=== PATIENT | female | born 1950 | race Caucasian/White ===

== ENCOUNTER 2017-12-15 08:00 | Outpatient (RCR) | payer MEDICARE, BC ==
[2017-12-14 15:55] LABS: BASOPHILS % 0.3 % (0.0-1.0); EOSINOPHILS % 0.3 % (0.0-6.0); HEMOGLOBIN 12.5 g/dL (12.0-16.0); LYMPHOCYTES # (AUTO) 0.7 (1.0-3.2); MEAN CORPUSCULAR HEMOGLOBIN 33.3 pg (28-32); MEAN CORPUSCULAR HGB CONC 34.7 g/dL (31-35); MONOCYTES # (AUTO) 0.7 (0.2-0.8); MONOCYTES % 11.5 % (4.4-11.3); NEUTROPHILS # (AUTO) 4.5 (2.1-6.9); NEUTROPHILS % 74.9 % (38.7-80.0); PLATELET COUNT 157 x10e3/uL (140-360); RED BLOOD COUNT 3.75 x10e6/uL (3.6-5.1); RED CELL DISTRIBUTION WIDTH 16.8 % (11.7-14.4)
[2017-12-14 16:34] LABS: ALBUMIN 3.4 g/dL (3.5-5.0); ANION GAP 13.2 mmol/L (8-16); CALCIUM 9.1 mg/dL (8.4-10.2); CREATININE, SERUM 1.19 mg/dL (0.57-1.11)
[2017-12-14 16:36] LABS: POTASSIUM 5.2 mmol/L (3.5-5.1)
[~2017-12-15 08:00] MED LIST: BENZONATATE100 MG PO; BISOPROLOL FUMAR5 MG PO; CAPTOPRIL12.5 MG PO; COLLAGENASE OINTMENT 30 GM TUBE ONE; ECOTRIN81 MG PO; FUROSEMIDE40 MG PO; ISOSORBIDE MONO30 M1 PO; LIDOCAINE VISC 2% SOLN 15 ML UDC ONE; TYLENOL EXTRA500 MG PO; ULTRAM50 MG PO; VYTORIN 10-401 EACH PO; ZEBETA10 MG PO
== END 2017-12-27 ==
LOC: WCC 08:00
PROVIDERS: ATTEND Podiatrist Foot & Ankle Surgery
DX: I87.331 Chronic venous hypertension (idiopathic) with ulcer and inflammation of right lower extremity (principal); I87.332 Chronic venous hypertension (idiopathic) with ulcer and inflammation of left lower extremity; L89.622 Pressure ulcer of left heel, stage 2; L89.612 Pressure ulcer of right heel, stage 2; L89.892 Pressure ulcer of other site, stage 2; L97.821 Non-pressure chronic ulcer of other part of left lower leg limited to breakdown of skin; L97.811 Non-pressure chronic ulcer of other part of right lower leg limited to breakdown of skin; I70.25 Atherosclerosis of native arteries of other extremities with ulceration; R60.0 Localized edema; I87.2 Venous insufficiency (chronic) (peripheral); I10 Essential (primary) hypertension; I25.84 Coronary atherosclerosis due to calcified coronary lesion; Z74.01 Bed confinement status
CPT/HCPCS: 36415; 80053; 84134; 85025; 93923; 97602 ×2; G0463

== ENCOUNTER 2018-01-18 12:26 | Outpatient (RCR) | payer MEDICARE, BC ==
[~2018-01-18 12:26] MED LIST changes: -LIDOCAINE VISC 2% SOLN 15 ML UDC ONE
[2018-01-18] MEDS ORDERED: COLLAGENASE OINTMENT 30 GM TUBE ONE (15:20)
[2018-01-18] MEDS ORDERED: LIDOCAINE VISC 2% SOLN 15 ML UDC ONE (15:20)
== END 2018-01-27 ==
LOC: WCC 12:26
PROVIDERS: ATTEND Podiatrist Foot & Ankle Surgery
DX: I87.331 Chronic venous hypertension (idiopathic) with ulcer and inflammation of right lower extremity (principal); I87.332 Chronic venous hypertension (idiopathic) with ulcer and inflammation of left lower extremity; L89.622 Pressure ulcer of left heel, stage 2; L89.612 Pressure ulcer of right heel, stage 2; L89.892 Pressure ulcer of other site, stage 2; L97.821 Non-pressure chronic ulcer of other part of left lower leg limited to breakdown of skin; L97.811 Non-pressure chronic ulcer of other part of right lower leg limited to breakdown of skin; R60.0 Localized edema; I87.2 Venous insufficiency (chronic) (peripheral); I10 Essential (primary) hypertension; I25.84 Coronary atherosclerosis due to calcified coronary lesion; I70.25 Atherosclerosis of native arteries of other extremities with ulceration; Z74.01 Bed confinement status

== ENCOUNTER 2018-02-19 09:52 | Emergency (ER) | payer MEDICARE, BC ==
[~2018-02-19] VITALS: Ht 167.6 cm; Wt 52.2 kg
[~2018-02-19 09:52] MED LIST changes: -COLLAGENASE OINTMENT 30 GM TUBE ONE
--- OUTSIDE RECORDS SUMMARY | 2018-02-19 09:55 | XMS REPORT ---
Author Author [facility] Address Unknown Phone Unavailable Care Team Providers Care Hand Tube Bender Name Role Phone CAM ALVARENGA Unavailable Unavailable Problems This patient has no known problems. Allergies, Adverse Reactions, Alerts This patient has no known allergies or adverse reactions. Medications This patient has no known medications. Results Test Description Test Time Test Comments Text Results Atomic Results Result Comments CHEST XRAY LINE PLACEMENT [place] [address] Patient Name: EDWINA SEXTON MR #: [id number] : 1950 Age/Sex: 66/F Req #: [id number] Adm Physician: CAM ALVARENGA MD Ordered by: CAM ALVARENGA MD Report #: [id number] Location: ICU Room/Bed: [facility] __ Procedure: [id number] DX/CHEST XRAY LINE PLACEMENT Exam Date: 08/15/17 Exam Time: 1130 REPORT STATUS: Signed PROCEDURE: A single AP view of the chest. COMPARISON: Chest x- ray of 08/15/2017 4:50 AM. INDICATIONS: PICC PLACEMENT FINDINGS: Lines/tubes: New right PICC line with tip in low SVC. Left- sided AICD with 2 leads overlying radiopaque ring remain unchanged. Lungs: The lungs are well-inflated. Central pulmonary venous congestion is unchanged. Pleura: There is no pleural effusion or pneumothorax. Heart and mediastinum: mild cardiomegaly is unchanged. Bones: No acute bony abnormality. IMPRESSION: New right PICC line with tip at low SVC. Dictated by: Kena Lainez M.D. on 08/15/2017 at 12:13 Electronically approved by: Kena Lainez M.D. on 08/15/2017 at 12:13 Dictated By: KENA LAINEZ MD 121 Transcribed By: ROSSY on 08/15/17 1213 COPY TO: CAM ALVARENGA MD CHEST SINGLE (PORTABLE) [place] [address] Patient Name: EDWINA SEXTON MR #: [id number] : 1950 Age/Sex: 66/F Req #: [id number] Adm Physician: CAM ALVARENGA MD Ordered by: CAM ALVARENGA MD Report #: [id number] Location: ICU Room/Bed: ICU [facility] __ Procedure: [id number] DX/CHEST SINGLE (PORTABLE) Exam Date : 08/15/17 Exam Time: 0450 REPORT STATUS: Signed EXAMINATION: CHEST SINGLE (PORTABLE) INDICATION: COPD. COMPARISON: 08/14/2017 and 08/13/2017 FINDINGS: TUBES and LINES: The pacemaker is intact. Radiopaque doughnut shape density overlying the left upper chest LUNGS: Lungs are not well inflated. There are bibasilar atelectasis. There is mild perihilar interstitial opacities, consistent with interstitial edema. PLEURA: No pleural effusion or pneumothorax. HEART AND MEDIASTINUM: Cardiac size is moderately enlarged. There are atherosclerotic calcifications within the aorta. BONES AND SOFT TISSUES: No acute osseous lesion. Soft tissues are unremarkable. UPPER ABDOMEN: No free air under the diaphragm. IMPRESSION: Persistent interstitial changes with cardiomegaly suspicious for fluid overload. Signed by: Dr. Rudy Garcia M.D. on 08/15/2017 6:13 AM Dictated By: RUDY JIMENEZ MD 2 Transcribed By: DINO on 08/15/17612 COPY TO: CAM ALVARENGA MD CHEST SINGLE (PORTABLE) [place] [address] Patient Name: EDWINA SEXTON MR #: [id number] : 1950 Age/Sex: 66/F Req #: [id number] Adm Physician: CAM ALVARENGA MD Ordered by: ZHANG BARRERA MD Report #: [id number] Location: [facility] Room/Bed: [place] [address] Procedure: [id number] DX/CHEST SINGLE (PORTABLE) Exam Date: 08/14/17 Exam Time: 1030 REPORT STATUS: Signed PROCEDURE: CHEST SINGLE (PORTABLE) TECHNIQUE: Portable AP chest INDICATION: Shortness of breath COMPARISON: [facility], DX , CHEST SINGLE (PORTABLE), 08/13/2017, 8:25. FINDINGS: Bilateral interstitial opacity with central vascular enlargement cardiomegaly. 2-lead AICD/pacemaker left hemithorax with accompanying magnet. Leads intact. Intact skeleton. Cholecystectomy clips. CONCLUSION: Cardiomegaly with central vascular congestion and mild interstitial edema. Dictated by: Yu Centeno M.D. on 08/14/2017 at 11:15 Electronically approved by: Yu Centeno M.D. on 08/14/2017 at 11:15 Dictated By: YU CENTENO MD Transcribed By: ROSSY on 08/14/171114 COPY TO: ZHANG BARRERA MD CT BRAIN WO [place] [id number] [place] [address] Patient Name: EDWINA SEXTON MR #: [id number] : 1950 Age/Sex: 66/F Req #: [id number] Adm Physician: Ordered by: JONI CYR MD Report #: [id number] Location: ER Room/Bed: Procedure: [id number] CT/CT BRAIN WO Exam Date: 08/13/17 Exam Time: 0810 REPORT STATUS: Signed History: Headaches Comparison studies: None Technique: Axial images were obtained from the skull base to the vertex. Coronal and sagittal reconstructions obtained from the axial data. Findings: Scalp/skull: No abnormalities. No fractures, blastic or lytic lesions. Extra-axial spaces: No masses. No fluid collections. Brain sulci: Mildly prominent. Ventricles: Mild compensatory dilatation. No hydrocephalus. Parenchyma: A subtle hypodense focus in the right subinsular region is nonspecific but probably small vessel ischemic change. No masses, hemorrhage, acute or chronic cortical vascular insults. Sellar /suprasellar region: No abnormalities Craniocervical junction: Patent foramen magnum. No Chiari one malformation. Incidental punctate atherosclerotic calcifications in the carotid siphons IMPRESSION: No acute abnormalities. Chronic findings: 1. Age-related mild generalized volume loss. 2. Minimal supratentorial white matter small vessel changes. Signed by: Dr. Vince Quinones M.D. on 08/13/2017 8:36 AM Dictated By : VINCE QUINONES MD, MD 5 Transcribed By: DINO on 08/13/17835 COPY TO: JONI CYR MD CHEST SINGLE (PORTABLE) [place] [address] Patient Name: EDWINA SEXTON MR #: [id number] : 1950 Age/Sex: 66/F Req #: [id number] Adm Physician: Ordered by: JONI CYR MD Report #: [id number] Location: ER Room/Bed: Procedure: [id number] DX/CHEST SINGLE (PORTABLE) Exam Date: 08/13/17 Exam Time: 0810 REPORT STATUS: Signed Examination: Single AP view of the chest. COMPARISON: Portable chest 03/15/2016 INDICATION: New onset headache IMPRESSION: 1. Lines and Tubes: Stable left upper chest dual lead cardiac device 2. Stable blunting of the left lateral costophrenic sulcus, likely due to pleural thickening. No consolidation. Stable mild prominence of the interstitial markings, likely due to chronic interstitial changes 3. Cardiomediastinal silhouette is normal. Pulmonary vasculature is normal. 4. No acute bony abnormalities. Signed by: Dr. Darwin Valadez M.D. on 08/13/2017 9:02 AM Dictated By: DARWIN VALADEZ MD 1 Transcribed By: DINO on 08/13/17901 COPY TO: JONI CYR MD
--- OUTSIDE RECORDS SUMMARY | 2018-02-19 09:55 | XMS REPORT | Continuity of Care Document ---
Author Author [facility] Organization [facility] Address [address] [place] [address] Phone Unavailable Care Team Providers Care Appliance Mechanic Name Role Phone CAM ALVARENGA MD PCP Insurance Providers Guarantor Gissel Sexton Address [address] [place] [address] Email [email or web address] [facility] Policy Number [id number] Subscriber's Name Srinath Sexton Relationship 01 Group Number [id number] Group Name [facility] Effective Date 15 Payer Medicare A & B Policy Number [id number] Subscriber's Name Gissel Sexton Relationship 18 Self / Same As Patient Group Name RETIRED Effective Date 13 Advance Directives Directive Response Recorded Date/Time Does the patient have an advance directive? Yes 08/13/17 4:07pm If yes, is advance directive on file with [facility]? No 08/13/17 4:07pm If not on file with [facility] will patient provide a copy? Yes 08/13/17 4:07pm Do you have a Directive to Physician? No 12/27/17 10:31am Do you have a Medical Power of It Operations Specialist? No 12/27/17 10:31am Do you have an out of hospital Do Not Resuscitate Order? No 12/27/17 10:31am Do you have any special needs we should be aware of? No 12/27/17 10:31am Do you have a support person here with you today? No 12/27/17 10:31am Did patient receive Notice of Privacy Practices? Yes 12/27/17 10:31am Did patient receive patient rights and responsibilities? Yes 12/27/17 10:31am Problems Medical Problem Onset Date Status Vertebral compression fracture 03/14/2016 Acute Medications Current Home Medications Medication Dose Units Route Directions Days Qty Instructions Start Date Acetaminophen (Tylenol Extra Strength) 500 Mg Tablet 1,000 Mg Oral Every 6 Hours as needed for Pain Aspirin (Ecotrin) 81 Mg Tablet.dr 81 Mg Oral Daily Benzonatate 100 Mg Capsule 100 Mg Oral Three Times A Day as needed for Cough Bisoprolol Fumarate (Zebeta) 10 Mg Tab 10 Mg Oral Every 12 Hours 30 Tab Captopril 12.5 Mg Tablet 12.5 Mg Oral Every 12 Hours Ezetimibe/Simvastatin (Vytorin 10-40 Mg Tablet) 1 Each Tablet Mg Oral Bedtime Furosemide 40 Mg Tablet 40 Mg Oral Daily 30 Tab Isosorbide Mononitrate 30 Mg Tab.er.24h 15 Mg Oral Daily Tramadol Hcl (Ultram) 50 Mg Tablet 50 Mg Oral Every 6 Hours as needed for Pain Past Home Medications Medication Directions Ordered Status Aspirin (Ecotrin) 81 Mg Tablet.dr, 81 Mg Oral Daily Discontinued Social History Social History Problem Response Recorded Date/Time Onset Date Status Hx Psychiatric Problems No 08/13/2017 4:07pm Not Applicable Not Applicable Hx Eating Disorder No 08/13/2017 4:07pm Not Applicable Not Applicable Hx Substance Use Disorder No 08/13/2017 4:07pm Not Applicable Not Applicable Hx Depression No 08/13/2017 4:07pm Not Applicable Not Applicable Hx Alcohol Use No 08/13/2017 4:07pm Not Applicable Not Applicable Hx Substance Use Treatment No 08/13/2017 4:07pm Not Applicable Not Applicable Hx Physical Abuse No 08/13/2017 4:07pm Not Applicable Not Applicable Hospital Discharge Instructions No hospital discharge instruction information available. Plan of Care Prescriptions See Medication Section Functional Status No functional status information available. Allergies, Adverse Reactions, Alerts Allergen Type Severity Reaction Status Last Updated Penicillin Allergy Severe "SHOCK" Active 08/13/17 Immunizations No immunization information available. Vital Signs Acute Vital Signs Vital Response Date/Time Temperature (Fahrenheit) 98.4 degrees F (97.6 - 99.5) 08/17/2017 9:11pm Pulse Pulse Rate (adult) 103 bpm (60 - 90) 08/17/2017 8:45pm Respiratory Rate 18 bpm (12 - 24) 08/17/2017 8:45pm Blood Pressure 119/79 mm Hg 08/17/2017 8:45pm Results Laboratory Results Test Name Result Units Flags Reference Collection Date/Time Result Date/ Time Comments Differential Total Cells Counted 100 08/17/2017 5:00am 08/17/2017 6 :52am Neutrophils % (Manual) 84 % H 40-74 08/17/2017 5:00am 08/17/2017 6:52am Band Neutrophils % 4 % 08/17/2017 5:00am 08/17/2017 6:52am Lymphocytes % (Manual) 8 % L 19-48 08/17/2017 5:00am 08/17/2017 6:52am Monocytes % (Manual) 4 % 3.4-9.0 08/17/2017 5:00am 08/17/2017 6:52am Eosinophils % (Manual) 1 % 0-7 08/13/2017 7:30am 08/13/2017 10:46am Reactive Lymphocytes 1 08/14/2017 6:00am 08/14/2017 10:11am Platelet Estimate SLIGHTLY DECREASED 08/17/2017 5:00am 08/17/2017 6 :52am Platelet Morphology Comment FEW LARGE 08/17/2017 5:00am 08/17/2017 6:52am Hypochromasia SLIGHT 08/17/2017 5:00am 08/17/2017 6:52am Poikilocytosis SLIGHT 08/17/2017 5:00am 08/17/2017 6:52am Anisocytosis SLIGHT 08/17/2017 5:00am 08/17/2017 6:52am Red Cell Morphology Comment NORMAL 08/17/2017 5:00am 08/17/2017 6: 52am Erythrocyte Sedimentation Rate 1 mm/hr 0-20 08/13/2017 7:30am 2016 9:38am Prothrombin Time 14.0 seconds 11.9-14.5 08/15/2017 5:00am 08/15/2017 8: 14am Prothromb Time International Ratio 1.03 08/15/2017 5:00am 2016 8:14am Oral Anticoagulant Therapy INR Values: 1. Low Intensity Therapy 1.5 - 2.0 2. Moderate Intensity Therapy 2.0 - 3.0 3. High Intensity Therapy(1) 2.5 - 3.5 4. High Intensity Therapy(2) 3.0 - 4.0 5. Panic Value INR > 5.0 Activated Partial Thromboplast Time 53.5 seconds H 23.8-35.5 08/17/2017 6 :40pm 08/17/2017 6:58pm Urine Color YELLOW YELLOW 08/13/2017 9:01am 08/13/2017 9:26am Urine Clarity CLEAR CLEAR 08/13/2017 9:01am 08/13/2017 9:26am Urine Specific [place] 1.020 1.010-1.025 08/13/2017 9:01am 2016 9:26am Urine pH 5 5 - 7 08/13/2017 9:01am 08/13/2017 9:26am Urine Leukocyte Esterase NEGATIVE NEGATIVE 08/13/2017 9:01am 2016 9:26am Urine Nitrite NEGATIVE NEGATIVE 08/13/2017 9:01am 08/13/2017 9:26am Urine Protein 1+ H NEGATIVE 08/13/2017 9:01am 08/13/2017 9:26am Urine Glucose (UA) NEGATIVE NEGATIVE 08/13/2017 9:01am 08/13/2017 9: 26am Urine Ketones NEGATIVE NEGATIVE 08/13/2017 9:01am 08/13/2017 9:26am Urine Opiates Screen POSITIVE H NEGATIVE 08/14/2017 3:23pm 08/14/2017 3:53pm This test provides only a screen. Positive results should be repeated by a confirmatory test. Urine Barbiturates Screen NEGATIVE NEGATIVE 08/14/2017 3:23pm 2016 3:53pm Urine Phencyclidine Screen NEGATIVE NEGATIVE 08/14/2017 3:23pm 2016 3:53pm Urine Amphetamines Screen NEGATIVE NEGATIVE 08/14/2017 3:23pm 2016 3:53pm Urine Benzodiazepines Screen NEGATIVE NEGATIVE 08/14/2017 3:23pm 3:53pm Urine Cocaine Screen NEGATIVE NEGATIVE 08/14/2017 3:23pm 08/14/2017 3 :53pm Urine Cannabinoids Screen NEGATIVE NEGATIVE 08/14/2017 3:23pm 2016 3:53pm THESE RESULTS ARE FOR MEDICAL TREATMENT ONLY *THIS REPORT CONTAINS UNCONFIRMED SCREENING RESULTS* POSITIVE RESULTS WILL BE CONFIRMED BY REFERENCE LAB UPON REQUEST CUT-OFF DRUG CLASS CONCENTRATION ng/mL Amphetamines 1000 Methamphetamines 1000 Cocaine 300 Opiate 300 Phencyclidine 25 Cannabinoid 50 Barbiturates 300 Benzodiazepine 300 Methadone 300 Urine Urobilinogen 4 mg/dL H 0.2 - 1 08/13/2017 9:01am 08/13/2017 9: 26am Urine Bilirubin 1+ H NEGATIVE 08/13/2017 9:01am 08/13/2017 9:26am Urine Blood 1+ H NEGATIVE 08/13/2017 9:01am 08/13/2017 9:26am Urine WBC NONE /HPF 0-5 08/13/2017 9:01am 08/13/2017 9:29am Urine RBC NONE /HPF 0-5 08/13/2017 9:01am 08/13/2017 9:29am Urine Bacteria NONE /HPF NONE 08/13/2017 9:01am 08/13/2017 9:29am Urine Epithelial Cells NONE /LPF NONE 08/13/2017 9:01am 08/13/2017 9: 29am Urine Transitional Epithelial Cells UNSPUN NONE 08/13/2017 9:01am 9:29am Bedside Glucose 151 mg/dL H 70-120 08/17/2017 7:27pm 08/17/2017 11:59pm Meter ID: [id number] Magnesium Level 1.6 MG/DL 1.3-2.1 08/15/2017 5:40am 08/15/2017 6:42am Ammonia 47 UG/DL 31-123 08/15/2017 5:40am 08/15/2017 6:52am B-Type Natriuretic Peptide 888.4 pg/mL H 0-100 08/14/2017 6:00am 2016 11:08am Thyroid Stimulating Hormone (TSH) 0.686 uIU/mL 0.350-4.940 08/14/2017 6: 05am 08/14/2017 10:23am Arterial Blood pH 7.33 7.31-7.41 08/14/2017 8:25pm 08/14/2017 8:44pm Arterial Blood Partial Pressure CO2 36 mmHg L 41-51 08/14/2017 8:25pm 8:44pm Arterial Blood Partial Pressure O2 84 mmHg 80-105 08/14/2017 8:25pm 8:44pm Arterial Blood HCO3 19 mmol/L L 23-28 08/14/2017 8:25pm 08/14/2017 8: 44pm Arterial Blood Base Excess -7.0 mmol/L L -2 - 3 08/14/2017 8:25pm 2016 8:44pm Arterial Blood Oxygen Saturation 96.0 % 95-98 08/14/2017 8:25pm 2016 8:44pm White Blood Count 6.01 x10e3/uL 4.8-10.8 12/14/2017 2:30pm 12/14/2017 3 :55pm Red Blood Count 3.75 x10e6/uL 3.6-5.1 12/14/2017 2:30pm 12/14/2017 3: 55pm Hemoglobin 12.5 g/dL 12.0-16.0 12/14/2017 2:30pm 12/14/2017 3:55pm Hematocrit 36.0 % 34.2-44.1 12/14/2017 2:30pm 12/14/2017 3:55pm Mean Corpuscular Volume 96.0 fL 81-99 12/14/2017 2:30pm 12/14/2017 3: 55pm Mean Corpuscular Hemoglobin 33.3 pg H 28-32 12/14/2017 2:30pm 2017 3:55pm Mean Corpuscular Hemoglobin Concent 34.7 g/dL 31-35 12/14/2017 2:30pm 12/14/2017 3:55pm Red Cell Distribution Width 16.8 % H 11.7-14.4 12/14/2017 2:30pm 2017 3:55pm Platelet Count 157 x10e3/uL 140-360 12/14/2017 2:30pm 12/14/2017 3: 55pm Neutrophils (%) (Auto) 74.9 % 38.7-80.0 12/14/2017 2:30pm 12/14/2017 3: 55pm Lymphocytes (%) (Auto) 11.0 % L 18.0-39.1 12/14/2017 2:30pm 12/14/2017 3 :55pm Monocytes (%) (Auto) 11.5 % H 4.4-11.3 12/14/2017 2:30pm 12/14/2017 3: 55pm Eosinophils (%) (Auto) 0.3 % 0.0-6.0 12/14/2017 2:30pm 12/14/2017 3: 55pm Basophils (%) (Auto) 0.3 % 0.0-1.0 12/14/2017 2:30pm 12/14/2017 3:55pm IM GRANULOCYTES % 2.0 % H 0.0-1.0 12/14/2017 2:30pm 12/14/2017 3:55pm Neutrophils # (Auto) 4.5 2.1-6.9 12/14/2017 2:30pm 12/14/2017 3:55pm Lymphocytes # (Auto) 0.7 L 1.0-3.2 12/14/2017 2:30pm 12/14/2017 3: 55pm Monocytes # (Auto) 0.7 0.2-0.8 12/14/2017 2:30pm 12/14/2017 3:55pm Eosinophils # (Auto) 0.0 0.0-0.4 12/14/2017 2:30pm 12/14/2017 3:55pm Basophils # (Auto) 0.0 0.0-0.1 12/14/2017 2:30pm 12/14/2017 3:55pm Absolute Immature Granulocyte (auto 0.12 x10e3/uL H 0-0.1 12/14/2017 2: 30pm 12/14/2017 3:55pm Sodium Level 130 mmol/L L 136-145 12/14/2017 2:30pm 12/14/2017 4:36pm Potassium Level 5.2 mmol/L H 3.5-5.1 12/14/2017 2:30pm 12/14/2017 4: 36pm No hemolysis present Chloride Level 96 mmol/L L 98-107 12/14/2017 2:30pm 12/14/2017 4:36pm Carbon Dioxide Level 26 mmol/L 22-29 12/14/2017 2:30pm 12/14/2017 4: 36pm Anion Gap 13.2 mmol/L 8-16 12/14/2017 2:30pm 12/14/2017 4:36pm Blood Urea Nitrogen 36 mg/dL H 7-12/14/2017 2:30pm 12/14/2017 4:36pm Creatinine 1.19 mg/dL H 0.57-1.11 12/14/2017 2:30pm 12/14/2017 4:36pm BUN/Creatinine Ratio 30 H 6-25 12/14/2017 2:30pm 12/14/2017 4:36pm Estimat Glomerular Filtration Rate 45 ML/MIN L 60- 12/14/2017 2:30pm 4:36pm Ranges were taken from the National Kidney Disease Education Program and the National Kid[employer] Foundation literature. Reference ranges: 60 or greater: Normal 16-59 (for 3 consecutive months): Chronic kidney disease 15 or less: Kidney failure Glucose Level 93 mg/dL 74-118 12/14/2017 2:30pm 12/14/2017 4:36pm Calcium Level 9.1 mg/dL 8.4-10.2 12/14/2017 2:30pm 12/14/2017 4:36pm Total Bilirubin 0.5 mg/dL 0.2-1.2 12/14/2017 2:30pm 12/14/2017 4:36pm Aspartate Amino Transf (AST/SGOT) 26 IU/L 5-34 12/14/2017 2:30pm 2017 4:36pm Alanine Aminotransferase (ALT/SGPT) 35 IU/L 0-55 12/14/2017 2:30pm 4:36pm Total Protein 6.9 g/dL 6.5-8.1 12/14/2017 2:30pm 12/14/2017 4:36pm Albumin 3.4 g/dL L 3.5-5.0 12/14/2017 2:30pm 12/14/2017 4:36pm Globulin 3.5 g/dL 2.3-3.5 12/14/2017 2:30pm 12/14/2017 4:36pm Albumin/Globulin Ratio 1.0 0.8-2.0 12/14/2017 2:30pm 12/14/2017 4: 36pm Alkaline Phosphatase 54 IU/L 40-150 12/14/2017 2:30pm 12/14/2017 4: 36pm Prealbumin 33 mg/dL 10-36 12/14/2017 2:30pm 12/15/2017 9:24am Performed at: [facility] - [facility] [address] [id number] [employer] Mechanic: Tevin Bates MD, Phone: [phone] Procedures Procedure Status Date Provider(s) INSERTION OF INFUSION DEV INTO SUP VENA CAVA, PERC APPROACH Completed KENA OCONNOR MD Computed tomography of brain without radiopaque contrast Active 08/13/17 JONI CYR MD Encounters Encounter Location Arrival/Admit Date Discharge/Depart Date Attending Provider Discharged [facility] 01/18/18 12:26pm 11:59pm JANETT WASHBURN DPM Discharged [facility] 12/14/17 11:00am 11:59pm JANETT WASHBURN DPChioma Discharged Inpatient [facility] 08/14/17 1:49pm 08/17/17 9:30pm CAM ALVARENGA MD
[2018-02-19] MEDS ORDERED: HYDROCODONE/APAP 5MG-325MG TAB PO ONE (10:30)
[2018-02-19] MEDS ORDERED: MORPHINE SULFATE 2 MG/ML SYR IM STA (11:19)
--- NOTE | 2018-02-19 11:41 | Diagnostic Imaging Report ---
PROCEDURE:L-SPINE COMPLETE COMPARISON:10/17/2016 INDICATIONS:LOW BACK PAIN FINDINGS: Limited by generalized demineralization. There are 5 lumbar-type vertebral bodies. The vertebral bodies are well-aligned without evidence of spondylolisthesis. Unchanged mild L5 superior endplate compression deformity and Mild L3 anterior wedging. There are no displaced fractures, lytic or blastic lesions. The disc-space heights are well-maintained. Lower lumbar spine facet arthropathy. Vascular calcifications. CONCLUSION: No significant interval change from prior exam. Unchanged mild L5 superior endplate compression deformity and Mild L3 anterior wedging. Dictated by: Benjamin Adhikari M.D. on 02/19/2018 at 11:43 Electronically approved by: Benjamin Adhikari M.D. on 02/19/2018 at 11:43
--- NOTE | 2018-02-19 11:46 | Diagnostic Imaging Report ---
PROCEDURE:X-RAY PELVIS, AP VIEW COMPARISON:None. INDICATIONS:ACUTE PAIN FINDINGS: Limited by body habitus and demineralization. There are no fractures, dislocations, lytic or blastic lesions. Degenerative changes of SI joints and lower lumbar spine. The soft-tissues are unremarkable. CONCLUSION: No acute displaced fracture or dislocation of the pelvis. Dictated by: Benjamin Adhikari M.D. on 02/19/2018 at 11:48 Electronically approved by: Benjamin Adhikari M.D. on 02/19/2018 at 11:48
== END 2018-02-19 13:29 | disposition home or self-care (01) ==
LOC: ER 09:52
DX: M54.5 Low back pain (principal); S39.012A Strain of muscle, fascia and tendon of lower back, initial encounter; F17.210 Nicotine dependence, cigarettes, uncomplicated
CPT/HCPCS: 72110; 72170; 96372; 99283; J2270

== ENCOUNTER → 2018-03-22 | Outpatient (CLI) | payer MEDICARE, BC ==
--- NOTE | 2018-03-22 13:51 | Diagnostic Imaging Report ---
EXAMINATION: CT of the lumbar spine HISTORY:Low back pain for the last year COMPARISON: Lumbar spine CT on 03/15/2016 and x-ray from 02/19/2018 TECHNIQUE: Multidetector helical axial images were obtained without contrast from L1 to S1. The images were reconstructed using bone and soft tissue algorithms and were viewed in axial, sagittal, and coronal planes. FINDINGS: Alignment:Grade 1 anterolisthesis at L4-L5 due to facet arthrosis. Vertebral bodies: -Diffuse decreased bone marrow density related to osteopenia. -Mild age-indeterminate, likely subacute to chronic compression fracture of the L1 vertebral body with decreased height by approximately 30%, minimal posterior displacement of the superior endplate with minimal canal narrowing. Unchanged from x-ray from 02/19/2018, new since lumbar spine CT on 03/15/2016 -Minimal age indeterminate compression rupture of the T12 vertebral body with depression of the superior endplate approximately 10%, no posterior retropulsion and no canal stenosis. -Mild chronic compression fracture of the L3 and L5 vertebral bodies with decreased vertebral body height by approximately 20%, no significant posterior retropulsion. Paraspinal soft tissues:Slightly hyperdense focus in the superior pole of the left kidney may represent a small calcification, no hydronephrosis. Mild dilatation of the abdominal aorta with prominent calcified atherosclerotic changes. Intervertebral disks: L1-L2: Minimal symmetric disc bulge without significant stenosis. L2-L3: Mild symmetric disc bulge without significant stenosis. L3-L4: Symmetric disc pole chest and facet arthrosis. Mild canal and foraminal narrowing. L4-L5: Mild disc bulge and facet arthrosis. Mild canal and foraminal narrowing. L5-S1: Facet arthrosis without significant stenoses. Sacroiliac joints: Degenerative changes bilaterally. Age indeterminate likely chronic nondisplaced bilateral sacral rivera fractures. IMPRESSION: 1. Age indeterminate perhaps subacute compression fractures of the T12 and L1 vertebral bodies as described. 2. Mild chronic compression fractures of the L3 and L5 vertebral bodies. 3. Age indeterminate likely chronic nondisplaced bilateral sacral fractures. 4. Mild degenerative changes as detailed above. Signed by: Dr. Melly Reese M.D. on 03/22/2018 1:47 PM
== END ==
LOC: CT 11:08
PROVIDERS: ATTEND Family Medicine
DX: M54.40 Lumbago with sciatica, unspecified side (principal)
CPT/HCPCS: 72131

== ENCOUNTER → 2018-05-23 | Outpatient (CLI) | payer MEDICARE, BC ==
--- NOTE | 2018-05-23 19:50 | Diagnostic Imaging Report ---
Thyroid Scan with Uptake Determination Reason for exam: 67 F with elevated thyroid function tests. Radiopharmaceutical: I-123 Prabhjot 0.28 mCi Report: After oral administration of I-123 Prabhjot ,the 4-hour thyroid uptake of iodine is 1.6% (normal 4-14%). Image of the thyroid was obtained in the anterior projection. Quality of the image is suboptimal and uninterpretable because of the low thyroid uptake of iodine. 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 Decreased thyroid uptake of iodine in this patient who is thyrotoxic indicates that the patient is not hyperthyroid (overproducing thyroid hormone). Release of stored thyroid hormone due to an inflammatory process such as subacute thyroiditis is the most likely cause of this patient's thyrotoxicosis. Exogenous thyroid hormone in high doses and intake of excess iodide in diet or medication can also cause low thyroid uptake of iodine and should be excluded by clinical history. Signed by: Dr. Bryanna Khan M.D. on 05/23/2018 7:46 PM
== END ==
LOC: NM 08:55
PROVIDERS: ATTEND Internal Medicine
DX: R94.6 Abnormal results of thyroid function studies (principal)
CPT/HCPCS: 78014; A9516

== ENCOUNTER 2018-05-26 15:04 | Inpatient (IN) | payer MEDICARE, BC ==
[~2018-05-26] VITALS: Ht 162.6 cm; Wt 53.6 kg
[2018-05-26] VITALS (13 sets, daily range): BP systolic 97–129; BP diastolic 55–98
[2018-05-26] MEDS ORDERED: NEOMYCIN/POLYMYX/BACITR OINT 0.9 GM PKT ONE (16:09)
--- NOTE | 2018-05-26 16:28 | Diagnostic Imaging Report ---
EXAMINATION: CHEST SINGLE (PORTABLE) INDICATION: \S\chest pain \[id number] \S\[id number] COMPARISON: Chest radiograph 08/15/2017 FINDINGS: AP view TUBES and LINES: 3-lead ICD/pacemaker device overlying the right hemithorax with leads overlying the right atrial appendage, coronary sinus, and right ventricle. Previously, the device was on the left. LUNGS: Lungs are well inflated. Minimal atelectasis in the left lower lobe. Bilateral interstitial edema. PLEURA: No pleural effusion or pneumothorax. HEART AND MEDIASTINUM: The cardiomediastinal silhouette is unremarkable.. BONES AND SOFT TISSUES: No acute osseous lesion. Soft tissues are unremarkable. UPPER ABDOMEN: No free air under the diaphragm. Cholecystectomy clips. IMPRESSION: Bilateral interstitial edema, unchanged. Signed by: Dr. Ronit Montgomery M.D. on 05/26/2018 4:24 PM
[2018-05-26 17:08] LABS: CLARITY,URINE HAZY (CLEAR); COLOR,URINE YELLOW (YELLOW); LEUKOCYTE ESTERASE ,URINE NEGATIVE (NEGATIVE)
[2018-05-26 17:09] LABS: BILIRUBIN,URINE NEGATIVE (NEGATIVE); KETONES,URINE NEGATIVE (NEGATIVE); NITRITE,URINE NEGATIVE (NEGATIVE); PROTEIN,URINE DIPSTICK NEGATIVE (NEGATIVE); URINE UROBILINOGEN 0.2 mg/dL (0.2 - 1)
[2018-05-26 17:14] LABS: BACTERIA,URINE FEW /HPF; EPITHELIAL CELLS,URINE RARE /LPF; RBC,URINE 0-5 /HPF (0-5); WBC,URINE (MAN) 0-5 /HPF (0-5)
[2018-05-26 17:37] LABS: BASOPHILS % 0.6 % (0.0-1.0); HEMATOCRIT 34.2 % (34.2-44.1); HEMOGLOBIN 10.9 g/dL (12.0-16.0); LYMPHOCYTES # (AUTO) 0.8 (1.0-3.2); LYMPHOCYTES % 14.2 % (18.0-39.1); MEAN CORPUSCULAR HEMOGLOBIN 28.8 pg (28-32); MEAN CORPUSCULAR HGB CONC 31.9 g/dL (31-35); MEAN CORPUSCULAR VOLUME 90.2 fL (81-99); MONOCYTES # (AUTO) 0.8 (0.2-0.8); MONOCYTES % 15.2 % (4.4-11.3); NEUTROPHILS # (AUTO) 3.7 (2.1-6.9); NEUTROPHILS % 69.6 % (38.7-80.0); PLATELET COUNT 219 x10e3/uL (140-360); RED BLOOD COUNT 3.79 x10e6/uL (3.6-5.1); RED CELL DISTRIBUTION WIDTH 16.1 % (11.7-14.4)
[2018-05-26 17:52] LABS: INR 1.36; PROTHROMBIN TIME 15.8 seconds (11.9-14.5)
[2018-05-26 17:53] LABS: PARTIAL THROMBOPLASTIN TIME 32.8 seconds (23.8-35.5)
[2018-05-26] MEDS ORDERED: ACETAMINOPHEN 1000 MG/100 ML IV NR (18:00)
[2018-05-26 18:04] LABS: ALANINE AMINOTRANSFERASE 15 IU/L (0-55); ALBUMIN 3.1 g/dL (3.5-5.0); ALBUMIN/GLOBULIN RATIO 0.8 (0.8-2.0); ALKALINE PHOSPHATASE 111 IU/L (40-150); ANION GAP 20.6 mmol/L (8-16); BLOOD UREA NITROGEN 21 mg/dL (7-26); BUN/CREATININE RATIO 23 (6-25); CALCIUM 9.6 mg/dL (8.4-10.2); CARBON DIOXIDE 22 mmol/L (22-29); CHLORIDE 106 mmol/L (98-107); CREATINE KINASE 304 IU/L (29-168); CREATININE, SERUM 0.91 mg/dL (0.57-1.11); EST GLOMERULAR FILTRATION RATE > 60 ML/MIN (60-); GLUCOSE 108 mg/dL (74-118); LIPASE 45 U/L (8-78); POTASSIUM 4.6 mmol/L (3.5-5.1); SODIUM 144 mmol/L (136-145)
[2018-05-26] MEDS ORDERED: MEROPENEM 1GRAM 1 GM in SODIUM CHLORIDE 0.9% 100 ML 100 ML IV SCH (19:00)
[2018-05-26] MEDS ORDERED: ASPIRIN 81 MG CHEW TAB PO ONE (19:00)
[2018-05-26] MEDS ORDERED: IOPAMIDOL 370 MG/ML 200 ML INFUS..BTL INJ ONE (19:07)
[2018-05-26] MEDS ORDERED: SODIUM CHLORIDE 0.9% 50ML 0 ML ONE (19:07)
[2018-05-26] MEDS ORDERED: SODIUM CHLORIDE 0.9% 1000ML 1,000 ML IV STA (19:08)
[2018-05-26] MEDS ORDERED: SODIUM CHLORIDE 0.9% 50ML 50 ML ONE (19:14)
[2018-05-26] MEDS ORDERED: LORAZEPAM INJ 2 MG/ML VIAL IV ONE (19:15)
[2018-05-26] MEDS ORDERED: HALOPERIDOL LACTATE 5 MG/ML VIAL IV ONE (19:15)
--- NOTE | 2018-05-26 19:17 | Diagnostic Imaging Report ---
Exam: Head CT without contrast History: Altered mental status Comparison studies: Head CT 08/13/2017 Technique: Axial images were obtained from the skull base to the vertex. Coronal and sagittal images reconstructed from the axial data. Intravenous contrast: None Findings: Exam is limited by artifacts related to patient motion. Clinical indication: Soft tissues: Bilateral preseptal periorbital swelling.. Bones: No gross fractures or blastic or lytic lesions. Brain sulci: Mildly prominent. Ventricles: Mild compensatory dilatation. No hydrocephalus. Extra-axial spaces: No masses, no fluid collection. Parenchyma: No mass, acute hemorrhage or acute cortical vascular insults. A few subtle hypodensities in the supratentorial white matter are nonspecific but most compatible with chronic microvascular ischemic changes. Sellar/suprasellar region: No abnormalities. Craniocervical junction: Patent foramen magnum. No Chiari one malformation. Incidental findings: Chronic mucoperiosteal thickening in the right maxillary sinus which is partially opacified by polyp or retention cyst. IMPRESSION: Exam is limited by artifacts related to patient motion. In spite of these limitations: 1. Nonspecific bilateral periorbital swelling. 2. No gross acute intracranial abnormalities or gross fractures. 3. Mild generalized volume loss. 4. Mild chronic microvascular ischemic changes. Signed by: Dr. Mateo Otoole M.D. on 05/26/2018 7:13 PM
--- NOTE | 2018-05-26 19:23 | Diagnostic Imaging Report ---
EXAM: CT ABDOMEN AND PELVIS with IV CONTRAST DATE: 05/26/2018 3:35 PM Time stamp on Exam: 1829 hours INDICATION: Pain all over COMPARISON: None TECHNIQUE: The abdomen and pelvis were scanned using a multidetector helical scanner. Coronal and sagittal reformations were obtained. Routine protocol performed. Patient scanned on their side, right lateral decubitus. IV Contrast: 100 cc Isovue-370 Oral Contrast: None CTDIvol has been reviewed. It is below the limits set by the Radiation Protocol Committee (RPC). FINDINGS: LOWER THORAX: Interlobular septal thickening and right lower lobe atelectasis. Partially visualized cardiomegaly LIVER: No masses BILIARY: The gallbladder has been removed. Mild dilation of the ductal system secondary to reservoir effect and age. SPLEEN: No masses PANCREAS: No masses ADRENALS: No nodules KIDNEYS: Symmetric perfusion. No enhancing masses. No hydronephrosis. GI TRACT: No distention, wall thickening or evidence of obstruction. Small sliding hiatal hernia. VESSELS: Marked atherosclerotic changes of the abdominal aorta with mild aneurysmal dilation to 2.4 cm. PERITONEUM/RETROPERITONEUM: No free air or fluid LYMPH NODES: No lymphadenopathy REPRODUCTIVE ORGANS: Not visualized BLADDER: Moderately distended SOFT TISSUES: Partially visualized right chest generator pack BONES: Chronic insufficiency fractures of the bilateral sacral jose elias. Several old right-sided rib fractures. Chronic fracture of the right superior and inferior pubic rami. Chronic fractures of all visualized vertebral bodies T11-L5. IMPRESSION: No acute findings in the CT of the abdomen or pelvis. Chronic findings include severe osteoporosis with multiple chronic fractures including right ribs, all vertebral bodies, right pubic rami, and sacral insufficiency fractures. Marked atherosclerotic changes of the abdominal aorta with mild aneurysmal dilation up to 2.4 cm. Signed by: Dr. Radha Araujo M.D. on 05/26/2018 7:20 PM
[2018-05-26] MEDS: MEROPENEM 1 GM VIAL IV SCH ×2 (20:38→21:23)
[2018-05-26] MEDS: SODIUM CHLORIDE 0.9% 1000ML 1,000 ML IV SCH (21:11)
[2018-05-26] MEDS: VANCOMYCIN 1GM/NS 250 ML 250 ML IV SCH (21:11)
[2018-05-26] MEDS ORDERED: ASPIRIN 300 MG SUPP PR SCH (21:15)
[2018-05-26] MEDS ORDERED: SODIUM CHLORIDE 0.9% 250ML 250 ML ONE (21:24)
[2018-05-26] MEDS: HYDROMORPHONE 1MG/1ML INJ IV PRN (21:29)
[2018-05-26] MEDS ORDERED: ACYCLOVIR SODIUM INJ 2 VIAL IV ONE (21:51)
[2018-05-26] MEDS: ACYCLOVIR SODIUM IV SCH (22:33)
[2018-05-26] MEDS: SODIUM CHLORIDE 0.9% IV SCH (22:33)
[2018-05-27] VITALS (66 sets, daily range): BP systolic 87–130; BP diastolic 48–98
--- NOTE | 2018-05-27 00:06 | Consultation ---
DATE OF CONSULTATION: May 26, 2018 CARDIOLOGY CONSULTATION REQUESTING PHYSICIAN: Dr. Shirley REASON FOR CONSULTATION: Elevated troponin. HISTORY OF PRESENT ILLNESS: This is a 67-year-old woman with chronic systolic heart failure status post AICD, coronary artery disease with known 100% DATABASE ARCHITECT of the LAD, tobacco abuse, hypertension, and atrial fibrillation, who was brought to [facility] ER due to altered mental status. No history could be obtained from the patient due to altered mental status, and family was not present at bedside. All history is obtained from the EMR. The patient has apparently been complaining of pain all over her body for the last 3 weeks. She was noted to have developed a rash in her right forehead 1 week ago, but developed swelling in her right eye 2 days ago. On evaluation in the ER, she was found to have elevated troponin of 0.977 as well with an elevated BNP and lactic acidosis. Cardiology was consulted for evaluation of patient's elevated troponin. REVIEW OF SYSTEMS: Unable to obtain secondary to altered mental status. PAST MEDICAL HISTORY: 1. Chronic systolic heart failure, status post AICD. 2. Atrial fibrillation. 3. Coronary artery disease with known 100% DATABASE ARCHITECT of the LAD. 4. Hypertension. 5. Hyperlipidemia. PAST SURGICAL HISTORY: 1. Vertebroplasty. 2. Cholecystectomy. 3. Hysterectomy. SOCIAL HISTORY: One-pack a day smoker since the age of 10. No alcohol or drugs. FAMILY HISTORY: Noncontributory. ALLERGIES: Please see EMR. MEDICATIONS: See medication reconciliation. PHYSICAL EXAMINATION: VITAL SIGNS: Temperature 100 degrees, pulse 121, respiratory rate 19, blood pressure 97/55, oxygen saturation 100% on 2 liters nasal cannula. GENERAL: Cachectic, chronically ill-appearing woman, mildly uncomfortable. HEENT: Vesicular rash on the right forehead with swelling of her right eye which is unable to be opened. NECK: Supple. No thyromegaly or cervical lymphadenopathy. No carotid bruits. LUNGS: Coarse breath sounds bilaterally. No wheezes or crackles. CARDIOVASCULAR: Tachycardic, but regular. No murmur. Normal S1 and S2. ABDOMEN: Soft, nontender. EXTREMITIES: 2+ pitting edema bilaterally. NEURO: Unable to assess secondary to altered mental status as patient kept repeating that the nurse had left the needle inside. LABS: WBC 5.28, hemoglobin 10.9, hematocrit 34.2, platelets 219,000. Sodium 144, potassium 4.6, chloride 106, CO2 22, BUN 21, creatinine 0.91. Troponin 0.977. BNP 1938. Lactic acid 32.8. EKG, electronic ventricular pacemaker. Chest x-ray, bilateral interstitial edema, unchanged. CT of the abdomen and pelvis, no acute findings in the CT of the abdomen or pelvis. Chronic findings include severe osteoporosis, multiple chronic fractures including right rib, all vertebral bodies, right pubic rami and sacral insufficiency fractures, marked atherosclerotic changes of the abdominal aorta with mild aneurysmal dilation up to 2.[address] of the brain, exam is limited by artifact related to patient's motion, nonspecific bilateral periorbital swelling, no gross acute intracranial abnormalities or gross fractures. Mild generalized volume loss. Mild chronic microvascular ischemic changes. IMPRESSIONS: 1. Altered mental status. 2. Herpes zoster infection. 3. Elevated troponin. 4. Gtsis-tp-lsxhquk systolic heart failure. 5. Coronary artery disease. 6. Atrial fibrillation. 7. Hypertension. 8. Hyperlipidemia. RECOMMENDATIONS: Patient was on Eliquis at home, hold for possible procedures given patient's altered mental status. Continue aspirin. Trend cardiac enzymes. Once patient has recovered from her infection, she will need diuresis. In the meantime, antimicrobial therapy per infectious disease. Supportive care for patient's sepsis. Hold antihypertensive therapy for now given lower blood pressure. We will resume as blood pressure tolerates. Thank you for this consult. We will continue to follow. Job#: [id number] DR GAINES
[2018-05-27] MEDS: HYDROMORPHONE 1MG/1ML INJ IV PRN ×6 (01:38→23:45)
[2018-05-27 04:25] LABS: BASOPHILS % 0.6 % (0.0-1.0); EOSINOPHILS % 0.2 % (0.0-6.0); HEMATOCRIT 31.1 % (34.2-44.1); LYMPHOCYTES # (AUTO) 0.8 (1.0-3.2); LYMPHOCYTES % 14.8 % (18.0-39.1); MEAN CORPUSCULAR HEMOGLOBIN 28.5 pg (28-32); MEAN CORPUSCULAR HGB CONC 32.2 g/dL (31-35); MEAN CORPUSCULAR VOLUME 88.6 fL (81-99); MONOCYTES # (AUTO) 0.7 (0.2-0.8); MONOCYTES % 13.3 % (4.4-11.3); NEUTROPHILS # (AUTO) 3.6 (2.1-6.9); NEUTROPHILS % 70.7 % (38.7-80.0); PLATELET COUNT 186 x10e3/uL (140-360); RED BLOOD COUNT 3.51 x10e6/uL (3.6-5.1); RED CELL DISTRIBUTION WIDTH 16.1 % (11.7-14.4)
[2018-05-27 04:47] LABS: ALANINE AMINOTRANSFERASE 15 IU/L (0-55); ALBUMIN 2.8 g/dL (3.5-5.0); ALBUMIN/GLOBULIN RATIO 0.8 (0.8-2.0); ALKALINE PHOSPHATASE 95 IU/L (40-150); ANION GAP 16.1 mmol/L (8-16); BLOOD UREA NITROGEN 18 mg/dL (7-26); BUN/CREATININE RATIO 23 (6-25); CALCIUM 8.9 mg/dL (8.4-10.2); CARBON DIOXIDE 23 mmol/L (22-29); CHLORIDE 112 mmol/L (98-107); CREATININE, SERUM 0.77 mg/dL (0.57-1.11); EST GLOMERULAR FILTRATION RATE > 60 ML/MIN (60-); GLUCOSE 82 mg/dL (74-118); POTASSIUM 4.1 mmol/L (3.5-5.1); SODIUM 147 mmol/L (136-145)
[2018-05-27] MEDS: MEROPENEM 1 GM VIAL IV SCH ×3 (05:02→21:35)
[2018-05-27 05:10] LABS: CREATINE KINASE MB 7.9 ng/mL (0-5.0)
[2018-05-27] MEDS: ACYCLOVIR SODIUM IV SCH ×3 (06:00→22:01)
[2018-05-27] MEDS: SODIUM CHLORIDE 0.9% IV SCH ×3 (06:00→22:01)
[2018-05-27] MEDS: SODIUM CHLORIDE 0.9% 1000ML 1,000 ML IV SCH ×2 (07:46→17:46)
[2018-05-27 08:03] LABS: NEUTROPHILS % (MANUAL) 73 % (40-74)
[2018-05-27 08:04] LABS: LYMPHOCYTES % (MANUAL) 15 % (19-48); MONOCYTES % (MANUAL) 12 % (3.4-9.0)
[2018-05-27 08:05] LABS: PLATELET ESTIMATE ADEQUATE; PLATELET MORPHOLOGY COMMENT NORMAL; RBC MORPHOLOGY COMMENT NORMAL
[2018-05-27] MEDS: VANCOMYCIN 1GM/NS 250 ML 250 ML IV SCH ×2 (09:22→20:13)
[2018-05-27] MEDS: ASPIRIN 300 MG SUPP PR SCH (16:30)
--- NOTE | 2018-05-27 16:36 | Progress Note ---
DATE: May 27, 2018 CARDIOLOGY PROGRESS NOTE SUBJECTIVE: The patient remains confused, does not respond to questions. OBJECTIVE VITAL SIGNS: Temperature 102.6 degrees, pulse 118, respiratory rate 18, blood pressure 117/70, oxygen saturation 100% on room air. GENERAL: Cachectic, chronically ill-appearing woman, confused. HEENT: Vesicular rash on the right forehead with swelling of her right eye. LUNGS: Coarse breath sounds bilaterally. No wheezes or crackles. CARDIOVASCULAR: Tachycardic, but regular. No murmur. Normal S1 and S2. ABDOMEN: Soft, nontender. EXTREMITIES: No edema. SKIN: Maculopapular rash noted across the skin. CARDIAC MEDICATIONS: None. LABS: WBC 5.12, hemoglobin 10, hematocrit 31.1, platelets 186,000, sodium 147, potassium 4.1, chloride 112, CO2 of 23, BUN 18, creatinine 0.77, troponin 1.335. TELEMETRY: Sinus tachycardia. IMPRESSION: 1. Altered mental status. 2. Herpes zoster infection. 3. Gram-cocci bacteremia. 4. Elevated troponin. 4. Glwdh-do-cobubik systolic heart failure. 5. Coronary artery disease. 6. Atrial fibrillation. 7. Hypertension. 8. Hyperlipidemia. RECOMMENDATIONS: Continue holding Eliquis for possible procedures given the patient's altered mental status. As the patient has no p.o. access, start rectal aspirin. Continue trending cardiac enzymes. Antimicrobial therapy per infectious disease. Hold diuretics for now given her current sepsis. The patient will need diuresis once she recovers from her acute illness. She is currently not a candidate for any invasive cardiac evaluation. Thank you for this consult. We will continue to follow. Job#: [id number] EDER
[2018-05-27] MEDS ORDERED: ACETAMINOPHEN 1000 MG/100 ML IV PRN (17:45)
[2018-05-27] MEDS: LORAZEPAM INJ 2 MG/ML VIAL IV PRN (19:30)
[2018-05-27 20:42] LABS: CREATINE KINASE MB 5.3 ng/mL (0-5.0)
--- NOTE | 2018-05-27 23:39 | Consultation ---
DATE OF CONSULTATION: May 27, 2018 REASON FOR CONSULTATION: Sepsis. This patient is a [id number], white female, who was admitted on May 26. I did see the patient on May 27. I did discuss the case with the ER physician on May 26. HISTORY OF PRESENT ILLNESS: She is a 67-year-old female who has history of congestive heart failure, atrial fibrillation, coronary artery disease, with 100% occlusion, hypertension, hyperlipidemia, comes in from house with altered mental status PHYSICAL EXAMINATION: DICTATION DISCONTINUED (03:08) Job#: [id number] CQ
[2018-05-28] VITALS (26 sets, daily range): BP systolic 71–138; BP diastolic 42–103
[2018-05-28] MEDS: KETOROLAC TROMETHAMINE 30 MG/ML VIAL IV PRN ×3 (00:04→21:00)
[2018-05-28] MEDS: LORAZEPAM INJ 2 MG/ML VIAL IV PRN ×4 (01:01→21:37)
[2018-05-28] MEDS: HYDROMORPHONE 1MG/1ML INJ IV PRN ×6 (02:41→23:30)
[2018-05-28] MEDS: MEROPENEM 1 GM VIAL IV SCH ×3 (04:55→21:36)
[2018-05-28] MEDS: ACYCLOVIR SODIUM IV SCH ×3 (04:55→21:36)
[2018-05-28] MEDS: SODIUM CHLORIDE 0.9% IV SCH ×3 (04:55→21:36)
[2018-05-28 05:19] LABS: BASOPHILS % 0.9 % (0.0-1.0); EOSINOPHILS % 0.4 % (0.0-6.0); HEMATOCRIT 28.9 % (34.2-44.1); HEMOGLOBIN 9.3 g/dL (12.0-16.0); LYMPHOCYTES # (AUTO) 1.2 (1.0-3.2); LYMPHOCYTES % 26.2 % (18.0-39.1); MEAN CORPUSCULAR HEMOGLOBIN 28.9 pg (28-32); MEAN CORPUSCULAR HGB CONC 32.2 g/dL (31-35); MEAN CORPUSCULAR VOLUME 89.8 fL (81-99); MONOCYTES # (AUTO) 0.6 (0.2-0.8); MONOCYTES % 11.9 % (4.4-11.3); NEUTROPHILS # (AUTO) 2.8 (2.1-6.9); NEUTROPHILS % 59.5 % (38.7-80.0); PLATELET COUNT 192 x10e3/uL (140-360); RED BLOOD COUNT 3.22 x10e6/uL (3.6-5.1); RED CELL DISTRIBUTION WIDTH 16.4 % (11.7-14.4)
[2018-05-28 05:52] LABS: ALANINE AMINOTRANSFERASE 18 IU/L (0-55); ALBUMIN 2.5 g/dL (3.5-5.0); ALBUMIN/GLOBULIN RATIO 0.9 (0.8-2.0); ALKALINE PHOSPHATASE 79 IU/L (40-150); ANION GAP 15.4 mmol/L (8-16); BLOOD UREA NITROGEN 16 mg/dL (7-26); BUN/CREATININE RATIO 21 (6-25); CALCIUM 8.6 mg/dL (8.4-10.2); CARBON DIOXIDE 19 mmol/L (22-29); CHLORIDE 126 mmol/L (98-107); CREATININE, SERUM 0.76 mg/dL (0.57-1.11); EST GLOMERULAR FILTRATION RATE > 60 ML/MIN (60-); GLUCOSE 76 mg/dL (74-118); POTASSIUM 3.4 mmol/L (3.5-5.1); SODIUM 157 mmol/L (136-145)
--- NOTE | 2018-05-28 06:39 | Diagnostic Imaging Report ---
EXAM: CHEST SINGLE (PORTABLE), AP 1 view INDICATION: Sepsis COMPARISON: AP view of the chest May 26, 2018 FINDINGS: LINES/TUBES: Stable position of right approach cardiac device LUNGS: Pulmonary edema PLEURA: No effusions or pneumothorax. HEART AND MEDIASTINUM: Mild cardiac enlargement BONES AND SOFT TISSUES: No acute findings. IMPRESSION: No significant interval change Signed by: Dr. Radha Araujo M.D. on 05/28/2018 6:36 AM
[2018-05-28] MEDS ORDERED: SODIUM CHLORIDE 0.9% 500ML 0 ML ONE (08:51)
[2018-05-28] MEDS: ASPIRIN 300 MG SUPP PR SCH (08:51)
[2018-05-28] MEDS ORDERED: LIDOCAINE HCL 2% LOCAL 20 ML VIAL ONE (08:51)
[2018-05-28] MEDS: VANCOMYCIN 1GM/NS 250 ML 250 ML IV SCH ×2 (08:51→21:04)
[2018-05-28 11:33] LABS: APPEARANCE,CSF CLEAR (CLEAR); COLOR,CSF COLORLESS (COLORLESS); TUBE NUMBER 3
[2018-05-28 11:34] LABS: WHITE BLOOD CELL,CSF 474 cells/uL (0-5)
[2018-05-28] MEDS: DEXTROSE 5% 1,000 ML IV SCH (11:46)
[2018-05-28 12:03] LABS: ABG PCO2 30 mmHg (41-51); ABG PH 7.41 (7.31-7.41)
[2018-05-28 12:04] LABS: ABG HCO3 19 mmol/L (23-28); ABG PO2 87 mmHg (80-105)
[2018-05-28 12:14] LABS: LYMPHOCYTES,CSF 87 % (40-80); MONOCYTES,CSF 7 %; NEUTROPHILS,CSF 6 % (0-6)
[2018-05-28] MEDS ORDERED: ALBUTEROL/IPRATROPIUM 3 ML NEB NEB SCH (13:00)
--- NOTE | 2018-05-28 13:27 | Consultation ---
DATE OF CONSULTATION: May 28, [address] Casas, Dr. Carmichael. Unfortunate 67-year-old woman, admitted with fever as high as 102.6, recent herpes zoster infection involving the right side of the face, history of COPD, hypertension, congestive heart failure, old SD, a chronic atrial fibrillation, ALLERGIC TO PENICILLIN. She is a poor historian at the moment, having been sedated for an LP. Case was discussed with . MEDICATIONS 1. Aspirin. 2. Tessalon Perles. 3. Zebeta. 4. Tramadol. 5. Isosorbide mononitrate. 6. Captopril. 7. Vytorin. 8. Lasix. PAST SURGICAL HISTORY: She has had gallbladder surgery, hysterectomy, drainage of a vulvar abscess, AICD placement, vertebroplasty. SOCIAL HISTORY: Smoked pack a day for 55 years. PHYSICAL EXAMINATION VITAL SIGNS: Temperature max was 102.6, now 99, blood pressure 103/66, pulse 123 and irregular. HEENT: Rash face, which is crusting in seventh nerve distribution. Periorbital edema. SKIN: Petechial rash throughout the body. LUNGS: Diminished breath sounds. HEART: Irregular. ABDOMEN: Nontender. EXTREMITIES: Nonedematous. IMPRESSIONS 1. Congestive heart failure. 2. Dehydration with elevated sodium. 3. Gram-positive sepsis. 4. Herpes zoster infection. 5. Possible meningitis. 6. Normal white count. 7. Monocytosis. 8. Anemia apparently of chronic disease. 9. Chronic obstructive pulmonary disease. 10. Presumed myocardial infarction with positive troponins. 11. Severe hypernatremia. PLAN: Apparently, according to cardiology note, patient had been on Eliquis at home. This was discontinued because of her altered mental status. Antihypertensives were also held. Will add low-dose bronchodilator. Await LP results. Suspect gram-positive in the blood may have been contaminant. Continue therapy of infection as per infectious disease service. Patient is currently on meropenem, vancomycin, acyclovir. Chest x-ray is reported as showing pulmonary edema, though pneumonia cannot really be excluded. Continue therapy of sepsis and viral illness, hypernatremia. Thank you for this kind referral. We will follow with you. Job#: [id number] ABA
[2018-05-28] MEDS: ONDANSETRON HCL INJ 2 MG/ML VIAL IV PRN ×2 (14:00→21:00)
[2018-05-28] MEDS: CEFTRIAXONE SOD 1 GM VIAL IV SCH (14:44)
[2018-05-28] MEDS: ALBUTEROL SULF 0.083% NEB SOLN 3 ML NEB NEB SCH ×2 (15:25→19:15)
[2018-05-28] MEDS: IPRATROPIUM BROMIDE 0.02% 2.5 ML NEB NEB SCH ×2 (15:25→19:15)
--- NOTE | 2018-05-28 15:44 | Diagnostic Imaging Report ---
Lumbar Puncture with fluoroscopic guidance Informed consent: The procedure and its potential risks and complications were discussed with the patient. Consent was obtained. Clinical information Comparison [None. ] Radiation Dose:340 cGycm2 (Dose Area Product) Fluoroscopy time: 4.2 minutes Anesthesia: Local Findings: Impregnator Operator radiograph was performed. The patient was prepped and draped in sterile fashion. A right lateral midline approach was chosen to approach the L4-L5 level initially. 1% subcutaneous lidocaine was used for anesthesia. A 22 gauge x 3.5 inch needle was advanced towards the interspinous space, however, given degenerative changes, a satisfactory window was not present. The needle was removed. Decision made to target the L5-S1 level. After administration of 1% subcutaneous lidocaine, a 22 gauge x 3.5 inch needle was advanced via a right of midline approach with fluoroscopic guidance into the CSF space. Retrograde free flow of clear CSF was obtained. Given patient agitation, no pressure measurements was performed. A total of 9 cc of CSF was collected and sent to the lab for investigation. The needle was removed. Sterile dressing was placed. Impression Fluoroscopically guided lumbar puncture. No immediate complications. Signed by: Dr. Magui Molina MD on 05/31/2018 8:10 AM
--- NOTE | 2018-05-28 17:27 | Consultation ---
DATE OF CONSULTATION: May 27, 2018 HISTORY OF PRESENT ILLNESS: This patient who was seen and examined is a 67-year-old female who has chronic congestive heart failure, coronary artery disease, history of atrial fibrillation, hypertension and hyperlipidemia, comes into the hospital with fever, chills, altered mental status. There was herpetic lesion noted on her forehead. I have discussed the case with ER physician when she first came, recommended to put on acyclovir, meropenem, and vancomycin. Also recommended to do an LP. The patient is being admitted. She is currently in intensive care unit. The patient does not really provide any meaningful information. She is confused, I have no family at the bedside. PAST MEDICAL HISTORY: As mentioned above. PAST SURGICAL HISTORY: Cholecystectomy, hysterectomy, AICD placement, valvular abscess, and vertebroplasty. ALLERGIES: NKA. SOCIAL HISTORY: There is no smoking, drug abuse, or alcohol abuse. FAMILY HISTORY: Noncontributory. REVIEW OF SYSTEMS: Could not be obtained as the patient is confused. By the time I saw the patient, patient is growing gram-positive cocci in the blood. PHYSICAL EXAMINATION GENERAL: She is alert and confused. VITALS: Stable, currently afebrile. HEENT: She does not appear icteric. NECK: Supple. She did have old crusted lesion noted on her right left forehead. IMPRESSION: Sepsis, present on admission, source is bacteremia. I am also concerned about meningitis/encephalitis. I have concern about herpes simplex encephalitis as patient has history of herpes zoster versus other viral infection, Varicella zoster. We will put her on acyclovir, vancomycin, and meropenem. Obtain LP. Recheck CBC, recheck chem panel. Obtain blood cultures again after few days. Echocardiogram to rule out endocarditis. We will follow vancomycin trough. IV fluid hydration. We will follow with you closely. Job#: [id number] VAS
--- NOTE | 2018-05-28 17:44 | Progress Note ---
DATE: May 28, 2018 CARDIOLOGY PROGRESS NOTE SUBJECTIVE: No major events overnight. Patient had a lumbar puncture done. Resting in bed comfortably. Per the nurse, patient is in significant pain and distress whenever aroused. OBJECTIVE VITAL SIGNS: Temperature 99.1, pulse 126, respiratory rate 18, blood pressure 104/86, satting 99% on nasal cannula. GENERAL: Cachectic chronically ill-appearing woman, confused. HEENT: Has a vesicular rash allover the right forehead and swelling of the right eye. CARDIOVASCULAR: Tachycardic. No murmurs. Normal S1 and S2. LUNGS: Difficult exam as patient is supine. Breath sounds are coarse bilaterally. ABDOMEN: Soft, nontender. EXTREMITIES: No edema. MEDICATIONS: Reviewed. LABS: Notable for lumbar puncture findings consistent with viral encephalitis. Chest x-ray findings concerning for pulmonary edema versus pneumonia. TELEMETRY DATA: Reviewed. ASSESSMENT 1. Viral encephalitis. 2. Herpes zoster ophthalmicus. 3. Gram-cocci bacteremia. 4. Elevated troponin. 5. Bfjnu-en-oxcocby systolic and diastolic heart failure. 6. Coronary artery disease. 7. Atrial fibrillation. 8. Hypertension. 9. Hyperlipidemia. RECOMMENDATIONS: Continue holding Eliquis for possible procedures pending for patient's altered mental status. She had LP done already. Continue aspirin for her CAD. Cardiac enzymes peaked at approximately 1.3 likely secondary to her known CAD background and superimposed severe sepsis. Patient currently not a candidate for any invasive cardiac evaluation. Holding diuretics given her current severe sepsis. Once sepsis stabilizes, can resume gentle diuresis, though patient is currently n.p.o. and not receiving much p.o., so this is not a priority. Thank you for this consult. We will continue to follow. Job#: [id number] VERONIQUE
[2018-05-28] MEDS ORDERED: AMPICILLIN SOD 2 GM/NS 100ML 100 ML IV SCH (18:00)
[2018-05-28] MEDS ORDERED: AMPICILLIN SOD 2 GM/NS 100ML 2 G in AMPICILLIN SOD 2 GM/NS 100ML 100 ML IV SCH (18:00)
[2018-05-28] MEDS: DEXAMETHASONE SOD PHOS INJ 4 MG/ML VIAL IV SCH (18:18)
[2018-05-28] MEDS ORDERED: DEXAMETHASONE SOD PHOS INJ 4 MG/ML VIAL IV SCH (19:00)
[2018-05-28] MEDS ORDERED: MEROPENEM 1GM 100 ML IV SCH (22:00)
[2018-05-28] MEDS ORDERED: MEROPENEM 1 GM VIAL IV SCH (22:00)
[2018-05-28] MEDS ORDERED: FUROSEMIDE INJ 10 MG/ML 4 ML VIAL IV ONE (22:15)
--- NOTE | 2018-05-28 22:55 | Consultation ---
DATE OF CONSULTATION: May 28, 2018 NEUROLOGY CONSULT NOTE HISTORY OF PRESENT ILLNESS: Unfortunately, the patient is unable to provide a detailed medical history. There are no family members available at the bedside. History is obtained from review of the electronic medical records. Ms. Weldon is a 67-year-old woman with past medical history significant for hypertension, hyperlipidemia, coronary artery disease, systolic congestive heart failure, status post AICD placement, atrial fibrillation, and COPD admitted to [facility] on May 26, 2018 with altered mental status. Prior to her admission, the patient reported diffuse body pain for approximately 3 weeks. One week prior to admission, the patient developed a rash over the right side of the forehead. Two days prior to admission, the patient developed swelling of the right eye. However, it was when the patient became encephalopathic that she was brought to the emergency center at [facility] for further evaluation. Upon arrival in the emergency center, the patient's temperature is 100.1, axillary, with a blood pressure 127/87 mmHg and a pulse 117 beats per minute. Her neurological examination is documented as follows: Oriented times 3 (moves all extremities). The patient's laboratory data was significant for a mildly elevated AST of 39. Lipase was normal at 45. Cardiac labs were significant for an increased troponin-I of 0.97. The BNP was 193. The CBC with differential and platelets was normal with the exception of a hemoglobin of 10.9. A urinalysis was documented as being normal. An electrocardiogram revealed tachycardia. A chest x-ray revealed bilateral interstitial edema. Ms. Weldon was admitted to the intensive care unit at [facility] for further evaluation and treatment of sepsis, shingles, possible myocardial infarction, and congestive heart failure exacerbation. REVIEW OF SYSTEMS: Unable to obtain secondary to the patient being encephalopathic. PAST MEDICAL HISTORY: Hypertension, hyperlipidemia, coronary artery disease, systolic congestive heart failure, atrial fibrillation, COPD. PAST SURGICAL HISTORY: Vertebroplasty, cholecystectomy, hysterectomy, AICD placement, drainage of a vulvar abscess. PAST HOSPITALIZATIONS: Surgeries/procedures as listed, numerous other hospitalizations. FAMILY MEDICAL HISTORY: Unable to assess secondary to patient being encephalopathic. SOCIAL HISTORY: Ms. Weldon is . She does smoke cigarettes. She has smoked approximately one pack per day for 57 years. There is no documentation of current or prior alcohol or recreational drug use. HOME MEDICATIONS 1. Aspirin 81 mg by mouth daily. 2. Acetaminophen 1000 mg by mouth every 6 hours as needed for pain. 3. Benzonatate 100 mg by mouth 3 times daily as needed. 4. Bisoprolol 10 mg by mouth twice daily. 5. Captopril 12.5 mg by mouth twice daily. 6. Vytorin 10 per 40 mg one tablet by mouth at bedtime daily. 7. Lasix 40 mg by mouth daily. 8. Isosorbide mononitrate ER 15 mg by mouth daily. 9. Tramadol 50 mg by mouth every 6 hours as needed for pain. ALLERGIES: PENICILLIN. NO KNOWN FOOD ALLERGIES. NO KNOWN ALLERGIES TO LATEX. NO KNOWN ALLERGIES TO IODINE OR OTHER CONTRAST MATERIALS. PHYSICAL EXAMINATION VITAL SIGNS: Height 66 inches. Weight 113 lbs. BMI 18.2 kg per meter squared. Blood pressure 127/70 mmHg. Pulse 112 beats per minute. Respiratory rate 20 breaths per minute. Oxygen saturation 99% on 2 L by nasal cannula. GENERAL: The patient is resting. She arouses briefly to physical stimuli (water squirted in and around the right eye). Minimally responsive. HEENT: Normocephalic, atraumatic. The left pupil is round and reactive to light. The right pupil is round and sluggish. NECK: Supple. No appreciable thyromegaly. No appreciable carotid bruits. CARDIOVASCULAR: S1, S2, tachycardic, regular rhythm. No murmurs, rubs or gallops. RESPIRATORY: Coarse rhonchi throughout anteriorly. EXTREMITIES: No clubbing, cyanosis or edema. The posterior tibial and dorsalis pedis pulses are 1+ and symmetric. SKIN: There is a healing viral exanthem in the right V1 distribution (shingles). There is desquamation of the skin over the feet and less so the palms of the hands. There are multiple, skin tears and abrasions over the arms and legs. NEUROLOGIC Memory/Attention: The patient arouses briefly to physical stimuli as above. She is not oriented. Cranial Nerves: The left pupil is round and briskly reactive to light. The right pupil is round and sluggishly reactive to light. The corneal reflex is intact on the left, intact, but weak on the right. Oculocephalic and gag reflexes are intact. The face appears symmetric. Strength: Bulk is diminished. The patient withdraws all extremities to peripheral noxious stimulation. Tone is decreased. DTRs: Unable to assess secondary to the patient continually moving her arms or legs while attempting to assess deep tendon reflexes. Sensation: As per motor exam. Cerebellar: Unable to assess secondary to encephalopathy. Gait: Deferred. Speech: Unable to assess secondary to encephalopathy. Involuntary movements: None. Pronator drift: As per motor exam. LABORATORY DATA: Sodium 157, potassium 3.4, chloride 126, carbon dioxide 19, anion gap 15.4. BUN 16, creatinine 0.76, estimated GFR greater than 60. BUN to creatinine ratio 21. Glucose 76, calcium 8.6, total bilirubin 0.6, AST 60, ALT 18, alkaline phosphatase 79, total protein 5.4 albumin 2.5, globulin 2.9, albumin to globulin ratio 0.9. Creatinine kinase 304, 238, 275. CK-MB 7.90, 7.90, 5.30. Troponin-I 0.977, 1.335, 1.360. B natriuretic peptide 1938.0. Lactic acid 32.8, 30.5. Magnesium 1.9. The CBC with differential and platelets reveals a white blood cell count of 4.70 with 59.5% neutrophils, 26.2% lymphocytes, 11.9% monocytes, 0.4% eosinophils, 0.9% basophils. The hemoglobin, hematocrit are 9.3 and 28.9, respectively. The platelet count 192,000. PT 15.8, INR 1.36, PTT 32.8. From May 28, 2018, an arterial blood gas reveals a pH is 7.4, pCO2 of 30, pO2 of 87, bicarbonate of 19, oxygen saturation 97.0. Base excess 96.0, FiO2 32. A urinalysis was unremarkable. A vancomycin trough from May 28, 2018 was 13.6. A lumbar puncture performed on May 28, 2018 revealed clear, colorless fluid with 474 white blood cells, 21 red blood cells, 6% neutrophils, 87% lymphocytes, and 7% monocytes, all remaining CSF studies are pending. A blood culture from May 26, 2018 grew Staphylococcus aureus. A urine culture from May 26, 2018 reveals no growth at 36 to 48 hours. The 2nd blood culture drawn on May 26, 2018 is pending. Gram stain of the cerebral spinal fluid reveals no white blood cells, no organisms. Cerebrospinal fluid culture is pending. DIAGNOSTIC STUDIES: Electrocardiogram of 05/26/2018: Tachycardic at 115 beats per minute. Electronic ventricular pacemaker. Chest x-ray of 05/26/2018: Bilateral interstitial edema, unchanged. CT of the abdomen/pelvis of 05/26/2018: No acute findings on the CT of the abdomen or pelvis. Chronic findings include severe osteoporosis with multiple chronic fractures including right ribs, all vertebral bodies, right pubic rami, and sacral insufficiency fractures. Marked atherosclerotic changes of the abdominal aorta with mild aneurysmal dilatation of 2.[address] of the brain without contrast of 05/26/2018: On my review, there is no evidence of recent large territorial ischemia, hemorrhage, mass or mass effect. There is mild diffuse cerebral atrophy. There are findings compatible with [id number] chronic small-vessel ischemic disease. Bilateral periorbital swelling is noted as well. Chest x-ray 05/28/2018: No significant interval change. ASSESSMENT AND PLAN: Ms. Weldon is a 67-year-old woman with an extensive past medical history, admitted with altered mental status, rash over the right V1 distribution, sepsis, and diffuse body pain. The patient has undergone a complete neurological examination as documented. Her laboratory data and other diagnostic studies have been reviewed and are documented above. The probable cause of Ms. Weldon's encephalopathy is bacteremia with Staphylococcus aureus and viral meningitis. Continue treatment with the patient's current antibiotic and antiviral medications is recommended pending the results of the remaining cerebrospinal fluid studies and cultures. RECOMMENDATIONS 1. Additional blood work will be ordered to evaluate for other possible etiologies of encephalopathy. However, this blood work is likely to be of low yield. The studies ordered will include: TSH, vitamin B12 level, and RPR. 2. Limit the use of sedative/hypnotic and pain medications as these medications will alter the patient's sensorium. 3. Utilize environmental cues to limit the occurrence of delirium. Thank you for this consultation. I will continue to follow the patient while she remains in the hospital. Time spent 70 minutes. Job#: [id number] CQ MTDD
[2018-05-29] VITALS (38 sets, daily range): BP systolic 90–173; BP diastolic 54–132
[2018-05-29] MEDS: IPRATROPIUM BROMIDE 0.02% 2.5 ML NEB NEB SCH ×4 (02:05→20:00)
[2018-05-29] MEDS: ALBUTEROL SULF 0.083% NEB SOLN 3 ML NEB NEB SCH ×4 (02:05→20:00)
[2018-05-29] MEDS: DEXTROSE 5% 1,000 ML IV SCH ×4 (02:27→21:10)
[2018-05-29] MEDS: CEFTRIAXONE SOD 1 GM VIAL IV SCH (02:27)
[2018-05-29] MEDS: ONDANSETRON HCL INJ 2 MG/ML VIAL IV PRN ×2 (02:28→20:30)
[2018-05-29] MEDS: HYDROMORPHONE 1MG/1ML INJ IV PRN ×4 (02:30→20:28)
[2018-05-29] MEDS: KETOROLAC TROMETHAMINE 30 MG/ML VIAL IV PRN ×2 (02:58→22:59)
[2018-05-29] MEDS: LORAZEPAM INJ 2 MG/ML VIAL IV PRN ×4 (03:32→22:20)
[2018-05-29] MEDS: ACYCLOVIR SODIUM IV SCH ×3 (05:31→21:10)
[2018-05-29] MEDS: DEXAMETHASONE SOD PHOS INJ 4 MG/ML VIAL IV SCH ×4 (05:31→18:42)
[2018-05-29] MEDS: MEROPENEM 1 GM VIAL IV SCH ×3 (05:31→21:10)
[2018-05-29] MEDS: SODIUM CHLORIDE 0.9% IV SCH ×3 (05:31→21:10)
[2018-05-29 05:44] LABS: BASOPHILS % 0.2 % (0.0-1.0); HEMATOCRIT 32.7 % (34.2-44.1); HEMOGLOBIN 10.3 g/dL (12.0-16.0); LYMPHOCYTES # (AUTO) 0.7 (1.0-3.2); LYMPHOCYTES % 17.3 % (18.0-39.1); MEAN CORPUSCULAR HEMOGLOBIN 28.6 pg (28-32); MEAN CORPUSCULAR HGB CONC 31.5 g/dL (31-35); MEAN CORPUSCULAR VOLUME 90.8 fL (81-99); MONOCYTES # (AUTO) 0.2 (0.2-0.8); NEUTROPHILS # (AUTO) 3.3 (2.1-6.9); PLATELET COUNT 207 x10e3/uL (140-360); RED CELL DISTRIBUTION WIDTH 16.4 % (11.7-14.4)
[2018-05-29 05:59] LABS: INR 1.34; PROTHROMBIN TIME 15.6 seconds (11.9-14.5)
--- NOTE | 2018-05-29 06:20 | Diagnostic Imaging Report ---
CHEST SINGLE (PORTABLE), 05/29/2018 7:00 AM Technique: CHEST SINGLE (PORTABLE) Comparison: 05/28/2015 Clinical history: Pneumonia Findings: See Impression Impression: 1. Lines/Tubes: Stable right chest wall 3-lead ICD 2. Mildly enlarged cardiac silhouette 3. Stable diffuse opacities, likely underlying edema. No significant effusion. Signed by: Dr Gaby Chow MD on 05/29/2018 6:17 AM
[2018-05-29 06:26] LABS: ALANINE AMINOTRANSFERASE 21 IU/L (0-55); ALBUMIN 2.6 g/dL (3.5-5.0); ALBUMIN/GLOBULIN RATIO 0.7 (0.8-2.0); ALKALINE PHOSPHATASE 94 IU/L (40-150); ANION GAP 19.6 mmol/L (8-16); BLOOD UREA NITROGEN 18 mg/dL (7-26); BUN/CREATININE RATIO 20 (6-25); CALCIUM 8.8 mg/dL (8.4-10.2); CARBON DIOXIDE 19 mmol/L (22-29); CHLORIDE 122 mmol/L (98-107); CREATININE, SERUM 0.92 mg/dL (0.57-1.11); EST GLOMERULAR FILTRATION RATE > 60 ML/MIN (60-); GLUCOSE 190 mg/dL (74-118); POTASSIUM 3.6 mmol/L (3.5-5.1); SODIUM 157 mmol/L (136-145)
[2018-05-29 07:35] LABS: BAND NEUTROPHILS % (MANUAL) 1 %; BLAST CELLS % MANUAL 2; LYMPHOCYTES % (MANUAL) 15 % (19-48); MONOCYTES % (MANUAL) 5 % (3.4-9.0); NEUTROPHILS % (MANUAL) 75 % (40-74)
[2018-05-29 07:37] LABS: ANISOCYTOSIS MODERATE; HYPOCHROMASIA SLIGHT; PLATELET ESTIMATE ADEQUATE; PLATELET MORPHOLOGY COMMENT NORMAL; RBC MORPHOLOGY COMMENT NORMAL
[2018-05-29] MEDS: EYE LUBRICANT OPTH OINT 3.5GM TUBE OP SCH ×4 (09:27→21:10)
[2018-05-29] MEDS: ASPIRIN 300 MG SUPP PR SCH (09:34)
[2018-05-29] MEDS: VANCOMYCIN 1GM/NS 250 ML 250 ML IV SCH (09:34)
[2018-05-29 09:54] LABS: BLOOD UREA NITROGEN 18 mg/dL (7-26); GLUCOSE 190 mg/dL (74-118); OSMOLALITY,SERUM 318 mOsm/kg (278-305); SODIUM 157 mmol/L (136-145)
--- NOTE | 2018-05-29 12:11 | Progress Note ---
DATE: May 29, 2018 CARDIOLOGY PROGRESS NOTE SUBJECTIVE: Patient remains altered. No history could be obtained. LP was performed yesterday, suggestive of viral meningitis. OBJECTIVE VITAL SIGNS: Temperature 97.4 degrees, pulse 113, respiratory rate 20, blood pressure 157/95, oxygen saturation 98% on nasal cannula. GENERAL: Cachectic, chronically ill-appearing woman, confused. HEENT: Vesicular rash over the right forehead is covered with dressing. LUNGS: Coarse breath sounds bilaterally. Unable to appreciate any wheezes or crackles. CARDIOVASCULAR: Tachycardic, but regular. No murmur. Normal S1 and S2. ABDOMEN: Soft, nontender. EXTREMITIES: No edema. CARDIAC MEDICATIONS: Aspirin 300 mg DC daily. LABS: WBC 4.23, hemoglobin 10.3, hematocrit 32.7, platelets 207. Sodium 157, potassium 3.6, chloride 122, CO2 of 19, BUN 18, creatinine 0.92. Troponin-I 1.360. BNP 1849. TELEMETRY: Sinus tachycardia. IMPRESSION 1. Altered mental status secondary to viral meningitis, suspect herpes zoster. 2. Methicillin-susceptible Staphylococcus aureus bacteremia. 3. Herpes zoster ophthalmicus. 4. Elevated troponin. 5. Xuxsg-yn-[id number] systolic and diastolic heart failure. 6. Coronary artery disease with known chronic total occlusion of the left anterior descending. 7. Atrial fibrillation. 8. Hypertension. 9. Hyperlipidemia. RECOMMENDATIONS: Continue to hold Eliquis for possible procedures given patient's bacteremia and altered mental status. Continue rectal aspirin. Hold diuretics given her current infection. Plan to resume once patient recovers from her current illness. Antimicrobial therapy per infectious disease. Elevated troponin is likely secondary to demand ischemia in the setting of severe sepsis; however, she is not a candidate for any invasive cardiac evaluation at this time. If her condition improves, she will need a MCKAYLA to evaluate for endocarditis; however, at this time, she is not a candidate due to her altered mental status and critical illness. Thank you for this consult. We will continue to follow. Job#: [id number] RAINER
--- NOTE | 2018-05-29 16:11 | Progress Note ---
DATE: May 29, 2018 The patient remains confused, lethargic. The patient remains confused. She grew Staphylococcus aureus on May 26, MSSA. Patient is allergic to PENICILLIN. Patient is currently on dexamethasone, meropenem and acyclovir. We are still waiting on spinal fluids HSV PCR. PHYSICAL EXAMINATION GENERAL: She is confused. Does not seem to be in acute distress. VITAL SIGNS: Stable. No fever. T-max 100.7 . HEENT: Normocephalic. NECK: Supple. CHEST: Clear. CORE: S1, S2. No murmur. ABDOMEN: Soft. Bowel sounds present, nontender. EXTREMITIES: No edema. IMPRESSION 1. Meningitis/encephalitis. Concerned about herpes simplex in a patient with history of herpes zoster. Concerned about varicella zoster encephalitis. Continue with IV acyclovir. 2. Methicillin-susceptible Staphylococcus aureus bacteremia. Probably also cause of meningitis although the WBC is only 474. We do not have the glucose or the protein yet. Continue with meropenem which will cover the MSSA. We need an MRI of the spine to rule out paraspinal abscess. Will follow. Job#: [id number] PAMELA
--- NOTE | 2018-05-29 18:00 | Diagnostic Imaging Report ---
EXAMINATION: CT of the cervical spine with contrast. HISTORY: Encephalopathy, meningitis, herpes zoster ophthalmicus COMPARISON: None available TECHNIQUE: Multidetector helical axial images were obtained with contrast from the foramen magnum to T1. The images were reconstructed using bone and soft tissue algorithms and were viewed in axial, sagittal and coronal planes. Intravenous contrast: 100 mL of Isovue-370 Image quality: Motion artifact limits the evaluation given patient's clinical condition. FINDINGS: Alignment: Normal alignment and lordosis Soft tissues: Swelling of the left premastoid and suboccipital scalp soft tissues without discrete fluid collection in the visualized segment. No evidence of adjacent intracranial abnormality. Vertebrae: Minimal chronic anterior wedging of the C5 and C6 vertebral bodies. Partially visualized age-indeterminate compression fracture of the C4 vertebral body. Otherwise normal height and density. No infection or neoplasm Degenerative changes: C1-C2: Normal C2-C3: Facet arthrosis on the right without stenoses C3-C4: Uncovertebral and facet arthrosis mainly on the right without significant stenoses C4-C5: Uncovertebral and facet arthroses mainly on the left. Mild foraminal narrowing C5-C6: Facet arthrosis. Mild bilateral foraminal narrowing C6-C7: Mild facet arthrosis without stenoses C7-T1: Normal Incidental findings: Partially visualized emphysematous changes in the lung apices. IMPRESSION: 1. Nonspecific swelling of the left suboccipital soft tissues without mass or fluid collections in the visualized segment. 2. Mild chronic degenerative changes as detailed above. 3. Partially visualized age-indeterminate compression fracture of the T4 vertebral body Signed by: Dr. Melly Reese M.D. on 05/29/2018 5:57 PM
--- NOTE | 2018-05-29 18:11 | Diagnostic Imaging Report ---
EXAMINATION: CT of the lumbar spine with contrast HISTORY: Encephalopathy, meningitis, herpes zoster ophthalmicus COMPARISON:Lumbar spine CT on 03/22/[address] on 05/26/2018 TECHNIQUE: Multidetector helical axial images were obtained with contrast from L1 to S1. The images were reconstructed using bone and soft tissue algorithms and were viewed in axial, sagittal, and coronal planes. Intravenous contrast: 100 mL Isovue-370. Image quality: Motion artifact limits evaluation. FINDINGS: Alignment:Normal alignment and lordosis. Vertebral bodies: Again seen age-indeterminate moderate compression fracture of the T11, T12, L1, L2, L3, L4, L5 and bilateral sacral insufficiency fractures related to diffuse osteoporosis. Overall there is decreased vertebral body height in between 25-75%, the most collapsed vertebral bodies are L3 and L5, there is no associated posterior retropulsion or canal stenosis at this time. Paraspinal soft tissues: Partially visualized right-sided pleural effusion and right lung base opacity. No discrete mass or fluid collections.. Intervertebral disks: Unchanged mild symmetric disc bulge and facet arthroses from L1-L2 to L5-S1 with mild foraminal stenoses at L3-L4 and L4-L5. IMPRESSION: 1. Unchanged osteoporotic compression fracture from T11 to L5 and bilateral sacrum when compared to abdomen CT on 05/26/2018. 2. No mass or fluid collections. 3. Partially visualized right pleural effusion. Signed by: Dr. Melly Reese M.D. on 05/29/2018 6:07 PM
[2018-05-29] MEDS ORDERED: IOPAMIDOL 370 MG/ML 200 ML INFUS..BTL INJ ONE (22:30)
[2018-05-29] MEDS ORDERED: SODIUM CHLORIDE 0.9% 50ML 50 ML ONE (22:30)
[2018-05-29] MEDS ORDERED: HYDROMORPHONE 1MG/1ML INJ IV STA (23:14)
[2018-05-30] VITALS (18 sets, daily range): BP systolic 106–193; BP diastolic 61–177
[2018-05-30] MEDS: DEXAMETHASONE SOD PHOS INJ 4 MG/ML VIAL IV SCH ×4 (01:10→18:25)
[2018-05-30] MEDS: HYDROMORPHONE 1MG/1ML INJ IV PRN ×3 (01:13→07:45)
[2018-05-30] MEDS: IPRATROPIUM BROMIDE 0.02% 2.5 ML NEB NEB SCH ×4 (03:05→18:45)
[2018-05-30] MEDS: ALBUTEROL SULF 0.083% NEB SOLN 3 ML NEB NEB SCH ×4 (03:05→18:45)
[2018-05-30] MEDS: DEXTROSE 5% 1,000 ML IV SCH ×2 (04:18→23:30)
[2018-05-30] MEDS: ACYCLOVIR SODIUM IV SCH ×3 (04:57→23:30)
[2018-05-30] MEDS: MEROPENEM 1 GM VIAL IV SCH ×3 (04:57→23:00)
[2018-05-30] MEDS: SODIUM CHLORIDE 0.9% IV SCH ×3 (04:57→23:30)
[2018-05-30 05:43] LABS: BASOPHILS % 0.1 % (0.0-1.0); HEMATOCRIT 29.4 % (34.2-44.1); HEMOGLOBIN 9.1 g/dL (12.0-16.0); LYMPHOCYTES % 11.6 % (18.0-39.1); MEAN CORPUSCULAR HEMOGLOBIN 28.2 pg (28-32); MONOCYTES # (AUTO) 0.4 (0.2-0.8); MONOCYTES % 4.6 % (4.4-11.3); NEUTROPHILS # (AUTO) 7.2 (2.1-6.9); NEUTROPHILS % 82.8 % (38.7-80.0); PLATELET COUNT 203 x10e3/uL (140-360); RED BLOOD COUNT 3.23 x10e6/uL (3.6-5.1); RED CELL DISTRIBUTION WIDTH 16.6 % (11.7-14.4)
[2018-05-30 06:08] LABS: ANION GAP 15.6 mmol/L (8-16); CALCIUM 8.7 mg/dL (8.4-10.2); CREATININE, SERUM 0.98 mg/dL (0.57-1.11); POTASSIUM 3.6 mmol/L (3.5-5.1)
[2018-05-30] MEDS: ASPIRIN 300 MG SUPP PR SCH (08:11)
[2018-05-30] MEDS: EYE LUBRICANT OPTH OINT 3.5GM TUBE OP SCH ×4 (08:11→22:00)
--- NOTE | 2018-05-30 10:59 | Diagnostic Imaging Report ---
PROCEDURE:MIDLINE PLACEMENT COMPARISON:None. INDICATIONS:In need of IV access FINDINGS:A PICC line was ordered. Resistance to placement centrally was incurred. A midline was then placed in the right arm. Catheter insertion length was 19 cm. Each lumen reported to flush and aspirate adequately. Procedure was performed by the on-call PICC team. CONCLUSION:Midline placement. Amarjit Alvarado D.O. Dictated by: Amarjit Alvarado D.O. on 05/30/2018 at 11:04 Electronically approved by: Amarjit Alvarado D.O. on 05/30/2018 at 11:04
[2018-05-30] MEDS ORDERED: HYDROMORPHONE 1MG/1ML INJ IV PRN (11:30)
--- NOTE | 2018-05-30 12:05 | Progress Note ---
DATE: May 30, 2018 CARDIOLOGY PROGRESS NOTE SUBJECTIVE: No major events overnight. Patient is now minimally responsive to commands. Responds to verbal stimuli as well as asking for some water and chips of ice. Hemodynamically stable. Pain is better controlled. REVIEW OF SYSTEMS: Cannot complete a review of systems due to altered mental status. OBJECTIVE VITAL SIGNS: Temperature 97.0, heart rate 118, respiratory rate 18, blood pressure 138/79, satting 100% on 3 liters nasal cannula. GENERAL: Cachectic, chronically ill-appearing woman, confused. HEENT: Vesicular rash over the right forehead, covered with dressing. LUNGS: Coarse breath sounds bilaterally. Unable to appreciate any wheezes or crackles. CARDIOVASCULAR: Tachycardic but regular. No murmurs. Normal S1 and S2. ABDOMEN: Soft, nontender. EXTREMITIES: No edema. CARDIAC MEDICATIONS: Reviewed. Limited to aspirin at this time. LABS: All laboratory data reviewed. TELEMETRY: Sinus tachycardia with V-pacing. IMPRESSIONS 1. Altered mental status due to viral meningitis, suspect herpes meningitis. 2. Methicillin-susceptible Staphylococcus aureus bacteremia. 3. Herpes zoster ophthalmicus. 4. Elevated troponin. 5. Mzgyq-ym-hbcyelq systolic and diastolic heart failure. 6. 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 7. Atrial fibrillation. 8. Hypertension. 9. Hyperlipidemia. RECOMMENDATIONS: Continue to hold anticoagulation for her atrial fibrillation for now, given possible need for procedures while she is critically ill with ongoing bacteremia and viral meningitis. Continue aspirin for now. Her blood pressure is now improved. Remains tachycardic, likely due to pain and anxiety from her ongoing infection issues. From a heart failure nxsma-hx-zumk, will start low-dose beta mj at metoprolol succinate 25 mg daily. Patient has been on IV fluids at 125 mL an hour given her elevated BNP. Now that she is hemodynamically stable, would cut down her fluid intake to 50 mL an hour while she is n.p.o., and once she is able to take p.o., will stop IV fluids completely. She may need to start diuresing when she is hemodynamically more stable. Currently she is not a candidate for transesophageal echo given altered mental status and acute infection issues. There are no obvious murmurs on exam. Transthoracic echo was attempted by Dr. Lisset Cross yesterday, but due to patient being uncooperative, we were not able to get any images. She will need transesophageal echo once she is clinically more stable. Continue antibiotics and antimicrobials per infectious disease recommendations. Thank you for this consult. We will continue to follow. Job#: [id number] ABA
[2018-05-30] MEDS: LORAZEPAM INJ 2 MG/ML VIAL IV PRN (20:44)
[2018-05-30] MEDS ORDERED: ACYCLOVIR SODIUM INJ 2 VIAL IV ONE (23:58)
[2018-05-31] VITALS (8 sets, daily range): BP systolic 120–140; BP diastolic 66–92
[2018-05-31] MEDS ORDERED: SODIUM CHLORIDE 0.9% 250ML 250 ML ONE (00:02)
[2018-05-31] MEDS: DEXAMETHASONE SOD PHOS INJ 4 MG/ML VIAL IV SCH ×5 (00:45→23:25)
[2018-05-31] MEDS: IPRATROPIUM BROMIDE 0.02% 2.5 ML NEB NEB SCH ×5 (01:30→19:25)
[2018-05-31] MEDS: ALBUTEROL SULF 0.083% NEB SOLN 3 ML NEB NEB SCH (01:30)
--- NOTE | 2018-05-31 02:29 | Diagnostic Imaging Report ---
CHEST SINGLE (PORTABLE), 05/31/2018 1:50 AM Technique: CHEST SINGLE (PORTABLE) Comparison: 05/29/2018 Clinical history: Pain, shortness of breath Findings: See Impression Impression: 1. Lines/Tubes: Stable right chest wall 3-lead ICD. A presumed right PICC line terminates over the right axilla. 2. Stable mildly enlarged cardiac silhouette 3. Increased diffuse opacities, likely edema. 4. Increased small left pleural effusion. Layering right pleural fluid. Signed by: Dr Gaby Chow MD on 05/31/2018 2:26 AM
[2018-05-31] MEDS: ACYCLOVIR SODIUM IV SCH ×4 (02:56→21:19)
[2018-05-31] MEDS: SODIUM CHLORIDE 0.9% IV SCH ×4 (02:56→21:19)
[2018-05-31] MEDS ORDERED: FUROSEMIDE INJ 10 MG/ML 2 ML VIAL IV ONE ×3 (03:30→17:15)
[2018-05-31] MEDS: LORAZEPAM INJ 2 MG/ML VIAL IV PRN ×2 (04:35→20:35)
[2018-05-31 05:20] LABS: ALBUMIN 2.8 g/dL (3.5-5.0); ALBUMIN/GLOBULIN RATIO 0.8 (0.8-2.0); ANION GAP 16.6 mmol/L (8-16); CALCIUM 9.1 mg/dL (8.4-10.2); CREATININE, SERUM 0.97 mg/dL (0.57-1.11); POTASSIUM 3.6 mmol/L (3.5-5.1)
[2018-05-31 05:38] LABS: BASOPHILS % 0.1 % (0.0-1.0); HEMATOCRIT 32.2 % (34.2-44.1); LYMPHOCYTES # (AUTO) 0.8 (1.0-3.2); LYMPHOCYTES % 7.1 % (18.0-39.1); MEAN CORPUSCULAR HEMOGLOBIN 28.5 pg (28-32); MEAN CORPUSCULAR HGB CONC 31.1 g/dL (31-35); MEAN CORPUSCULAR VOLUME 91.7 fL (81-99); MONOCYTES # (AUTO) 0.3 (0.2-0.8); MONOCYTES % 2.3 % (4.4-11.3); NEUTROPHILS # (AUTO) 10.1 (2.1-6.9); NEUTROPHILS % 89.3 % (38.7-80.0); PLATELET COUNT 234 x10e3/uL (140-360); RED BLOOD COUNT 3.51 x10e6/uL (3.6-5.1); RED CELL DISTRIBUTION WIDTH 16.8 % (11.7-14.4)
[2018-05-31] MEDS: MEROPENEM 1 GM VIAL IV SCH ×3 (05:44→21:19)
[2018-05-31] MEDS: LEVALBUTEROL HCL SOLN NEBU 0.63 MG/3 ML NEB INH SCH ×4 (07:28→19:25)
[2018-05-31] MEDS: EYE LUBRICANT OPTH OINT 3.5GM TUBE OP SCH ×4 (09:09→21:19)
[2018-05-31] MEDS: ASPIRIN 300 MG SUPP PR SCH (09:09)
[2018-05-31 10:10] LABS: BAND NEUTROPHILS % (MANUAL) 1 %; LYMPHOCYTES % (MANUAL) 6 % (19-48); MONOCYTES % (MANUAL) 4 % (3.4-9.0); NEUTROPHILS % (MANUAL) 88 % (40-74); NUCLEATED RED BLOOD CELLS 1
[2018-05-31 10:12] LABS: ANISOCYTOSIS SLIGHT; HYPOCHROMASIA SLIGHT; PLATELET ESTIMATE ADEQUATE; PLATELET MORPHOLOGY COMMENT NORMAL; RBC MORPHOLOGY COMMENT NORMAL
[2018-05-31 17:30] LABS: ABG HCO3 20 mmol/L (23-28); ABG PCO2 23 mmHg (41-51); ABG PH 7.55 (7.31-7.41); ABG PO2 142 mmHg (80-105)
[2018-05-31] MEDS: DEXTROSE 5% 1,000 ML IV SCH (18:00)
--- NOTE | 2018-05-31 18:34 | Progress Note ---
DATE: May 31, 2018 CARDIOLOGY PROGRESS NOTE SUBJECTIVE: No major events overnight. The patient got transferred from the ICU onto the floor, now wakes up to verbal stimuli and able to follow some simple commands. Mental status slowly improving. REVIEW OF SYSTEMS: Complains about pain. Denies any shortness of breath or chest pain. Review of systems otherwise negative. OBJECTIVE VITAL SIGNS: Temperature 96.5, pulse 115, respiratory rate 18, blood pressure 127/80, satting 95% on 4 liters nasal cannula. GENERAL: Cachectic, ill appearing, elderly white female. CARDIOVASCULAR: PMI displaced and sustained. Regular S1 and S2. No murmurs, rubs or gallops. Normal carotid pulses. Normal radial pulses. Weak pedal pulses. ABDOMEN: Soft and nontender, nondistended. LUNGS: Bibasilar crackles. Mild respiratory distress. NEURO AND PSYCHIATRIC: Alert and oriented x1, somnolent. LABORATORY DATA: Reviewed. CURRENT MEDICATIONS: Reviewed. IMAGING DATA: Reviewed. Concerning for worsening pulmonary edema. TELEMETRY DATA: Reviewed, shows paced rhythm with sinus tachycardia. ASSESSMENT 1. Viral meningitis. 2. Methicillin-susceptible Staphylococcus aureus bacteremia. 3. Herpes zoster ophthalmic. 4. Yvzdr-ga-xuypels systolic and diastolic heart failure. 5. Coronary artery disease with known chronic total occlusion of the left anterior descending. 6. Atrial fibrillation. 7. Hypertension. 8. Hyperlipidemia. 9. Hypernatremia. 10. Malnutrition. RECOMMENDATIONS: Her chest x-ray is worsening, and she looks to be in mild respiratory distress. Chronically 5 liters of O2 satting 95%. She has been on IV fluids as the patient has not been able to take any oral intake. However, her elevated BNPs, even several days ago, and likely weak LV function at this point I recommend stopping all IV fluids and diuresing her a little bit with 1 time dose of 20 mg IV Lasix. Diuresis might be limited by her hypernatremia. Recommend free water, ideally p.o. if possible, when she has oral access. Continue antimicrobials per infectious disease. Continue aspirin. Continue monitoring on telemetry. Will attempt to do echocardiogram now that the patient is more cooperative and less altered. Thank you for this consult. We will continue to follow. Job#: [id number]
[2018-06-01] VITALS (7 sets, daily range): BP systolic 114–134; BP diastolic 69–94
[2018-06-01] MEDS: LEVALBUTEROL HCL SOLN NEBU 0.63 MG/3 ML NEB INH SCH ×4 (00:50→19:00)
[2018-06-01] MEDS: IPRATROPIUM BROMIDE 0.02% 2.5 ML NEB NEB SCH ×4 (00:50→19:35)
[2018-06-01 05:26] LABS: BASOPHILS % 0.2 % (0.0-1.0); HEMATOCRIT 32.8 % (34.2-44.1); HEMOGLOBIN 10.4 g/dL (12.0-16.0); LYMPHOCYTES # (AUTO) 0.7 (1.0-3.2); LYMPHOCYTES % 6.7 % (18.0-39.1); MEAN CORPUSCULAR HEMOGLOBIN 28.8 pg (28-32); MEAN CORPUSCULAR HGB CONC 31.7 g/dL (31-35); MEAN CORPUSCULAR VOLUME 90.9 fL (81-99); MONOCYTES # (AUTO) 0.3 (0.2-0.8); MONOCYTES % 3.1 % (4.4-11.3); NEUTROPHILS % 88.2 % (38.7-80.0); PLATELET COUNT 218 x10e3/uL (140-360); RED BLOOD COUNT 3.61 x10e6/uL (3.6-5.1)
[2018-06-01] MEDS: MEROPENEM 1 GM VIAL IV SCH (05:40)
[2018-06-01] MEDS: ACYCLOVIR SODIUM IV SCH (05:40)
[2018-06-01] MEDS: DEXAMETHASONE SOD PHOS INJ 4 MG/ML VIAL IV SCH ×3 (05:40→17:59)
[2018-06-01] MEDS: SODIUM CHLORIDE 0.9% IV SCH (05:40)
[2018-06-01 05:48] LABS: ANION GAP 16.5 mmol/L (8-16); CALCIUM 8.7 mg/dL (8.4-10.2); CREATININE, SERUM 1.08 mg/dL (0.57-1.11); POTASSIUM 3.5 mmol/L (3.5-5.1)
--- NOTE | 2018-06-01 06:20 | Diagnostic Imaging Report ---
CHEST SINGLE (PORTABLE), 06/01/2018 7:00 AM Technique: CHEST SINGLE (PORTABLE) Comparison: Previous day Clinical history: Pneumonia Findings: See Impression Impression: 1. Lines/Tubes: Stable right chest wall 3-lead ICD. A presumed right PICC line terminates over the right axilla. 2. Stable mildly enlarged cardiac silhouette 3. Persistent underlying edema. Increasing left basilar atelectasis or consolidation. 4. Stable small loculated left pleural effusion. Layering right pleural fluid. Signed by: Dr Gaby Chow MD on 06/01/2018 6:16 AM
[2018-06-01] MEDS: EYE LUBRICANT OPTH OINT 3.5GM TUBE OP SCH ×4 (08:45→20:50)
[2018-06-01] MEDS: ASPIRIN 300 MG SUPP PR SCH (08:45)
[2018-06-01] MEDS: VANCOMYCIN 1GM/NS 250 ML 250 ML IV SCH ×2 (11:03→22:44)
[2018-06-01] MEDS: DEXTROSE 5% 1,000 ML IV SCH ×2 (11:03→12:33)
--- NOTE | 2018-06-01 13:31 | Diagnostic Imaging Report ---
PROCEDURE:X-RAY ABDOMEN - KUB COMPARISON:Chest radiograph 06/01/2018 INDICATIONS:POST NG TUBE PLACEMENT FINDINGS: NG/OG tube with side-hole projecting over the gastroesophageal junction and tip overlying the gastric body. Right chest wall AICD with lead tips overlying the right atrium and right ventricle. There are no dilated loops of bowel within the visualized upper abdomen to suggest obstruction. Cholecystectomy clips in the right upper quadrant. Persistent loculated left pleural effusion with adjacent atelectasis. Aortic calcifications. Bones and soft tissues are unchanged. CONCLUSION: NG/OG tube with side-hole projecting over the gastroesophageal junction and tip overlying the gastric body. Dictated by: Huber Sykes M.D. on 06/01/2018 at 13:36 Electronically approved by: Huber Sykes M.D. on 06/01/2018 at 13:36
--- NOTE | 2018-06-01 13:59 | Diagnostic Imaging Report ---
PROCEDURE:X-RAY MODIFIED BARIUM SWALLOW COMPARISON:None. INDICATIONS:Rule out aspiration DISCUSSION:Fluoroscopic examination was performed in conjunction with speech pathology, during swallowing of a variety of thin and thick liquid consistencies, specifically thin puree and thin by cup. Severe oropharyngeal dysphagia and reduced level of alertness was noted. Trace silent aspiration with thin liquids was observed. CONCLUSION: Trace silent aspiration with thin liquids. Please see the report from speech pathology for complete details. Dictated by: Huber Sykes M.D. on 06/01/2018 at 14:04 Electronically approved by: Huber Sykes M.D. on 06/01/2018 at 14:04
--- NOTE | 2018-06-01 14:27 | Progress Note ---
DATE: June 01, 2018 CARDIOLOGY PROGRESS NOTE SUBJECTIVE: No major events overnight. The patient got transferred to [facility] given worsening respiratory status. Now has NG tube in place. REVIEW OF SYSTEMS: Could not be completed due to altered mental status. OBJECTIVE VITAL SIGNS: Heart rate 130, respiratory rate 28, blood pressure 120/90, satting 92% on 3 L nasal cannula. GENERAL: Thin, ill-appearing female. CARDIOVASCULAR: Tachycardic. PMI displaced and diffuse. Normal S1 and S2. S3 gallop. No murmurs. Palpable carotid pulses. Palpable radial pulses. Palpable pedal pulses. RESPIRATORY: Bilateral crackles. ABDOMEN: Soft, nontender. No masses. NEURO AND PSYCH: Altered, barely arousable, somnolent. LABORATORY DATA: Reviewed. MEDICATIONS: Reviewed. IMAGING DATA: Reviewed. TELEMETRY DATA: Reviewed. ECHOCARDIOGRAM: I reviewed her echocardiogram today. Her LVEF is less than 20% with apical akinesis. Has elevated filling pressure by Doppler. No significant valvular abnormalities. Has a left pleural effusion on echocardiogram. ASSESSMENT 1. Viral meningitis. 2. Methicillin-susceptible Staphylococcus aureus bacteremia. 3. Herpes zoster ophthalmicus. 4. Mdurw-wy-tfqzxgk systolic and diastolic heart failure. 5. 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 6. Biventricular implantable cardioverter-defibrillator in place. 7. Hypertension. 8. Hyperlipidemia. 9. Hypernatremia. 10. Malnutrition. 11. Altered mental status. RECOMMENDATIONS: Her LVEF is severely depressed by echocardiogram. Her filling pressures are elevated. Her chest x-ray shows pulmonary edema. Her BNP is elevated. Her oxygenation is worsening. Recommend stopping her IV fluids at this time and diuresing her gently with 20 mg of IV Lasix. She will need monitoring for hypernatremia closely during diuresis. Recommend free water through the NG tube now that oral access is once again available. Please change her aspirin to oral aspirin once the NG tube can be used. Will not add any beta blockers or JACLYN inhibitor at this time in that she is acutely ill and volume overloaded. There were no vegetations seen on echocardiography. The patient is not a candidate for MCKAYLA at this time. Thank you for this consult. We will continue to follow. Job#: [id number]
[2018-06-01] MEDS: HYDROMORPHONE 1MG/1ML INJ IV PRN (20:38)
[2018-06-02] MEDS: HYDROMORPHONE 1MG/1ML INJ IV PRN ×3 (00:18→13:02)
[2018-06-02] MEDS: DEXAMETHASONE SOD PHOS INJ 4 MG/ML VIAL IV SCH ×4 (00:18→17:50)
[2018-06-02] MEDS: IPRATROPIUM BROMIDE 0.02% 2.5 ML NEB NEB SCH ×4 (00:40→19:20)
[2018-06-02] MEDS: LEVALBUTEROL HCL SOLN NEBU 0.63 MG/3 ML NEB INH SCH ×4 (00:40→19:20)
[2018-06-02] MEDS: DEXTROSE 5% 1,000 ML IV SCH ×2 (01:19→15:21)
[2018-06-02 03:10] VITALS: BP 115/71
[2018-06-02] MEDS: ASPIRIN 300 MG SUPP PR SCH (08:00)
[2018-06-02] MEDS: LORAZEPAM INJ 2 MG/ML VIAL IV PRN ×2 (09:03→17:50)
[2018-06-02] MEDS: EYE LUBRICANT OPTH OINT 3.5GM TUBE OP SCH ×4 (09:08→23:05)
[2018-06-02 09:10] VITALS: BP 115/71
[2018-06-02 09:19] VITALS: BP 130/95
[2018-06-02 09:35] LABS: ABG HCO3 20 mmol/L (23-28); ABG PCO2 24 mmHg (41-51); ABG PH 7.53 (7.31-7.41); ABG PO2 110 mmHg (80-105)
[2018-06-02 10:19] LABS: BASOPHILS % 0.3 % (0.0-1.0); HEMATOCRIT 36.6 % (34.2-44.1); HEMOGLOBIN 11.1 g/dL (12.0-16.0); LYMPHOCYTES # (AUTO) 0.6 (1.0-3.2); LYMPHOCYTES % 4.4 % (18.0-39.1); MEAN CORPUSCULAR HEMOGLOBIN 28.8 pg (28-32); MEAN CORPUSCULAR HGB CONC 30.3 g/dL (31-35); MEAN CORPUSCULAR VOLUME 94.8 fL (81-99); MONOCYTES # (AUTO) 0.7 (0.2-0.8); MONOCYTES % 5.2 % (4.4-11.3); NEUTROPHILS # (AUTO) 12.6 (2.1-6.9); NEUTROPHILS % 88.3 % (38.7-80.0); PLATELET COUNT 188 x10e3/uL (140-360); RED BLOOD COUNT 3.86 x10e6/uL (3.6-5.1); RED CELL DISTRIBUTION WIDTH 17.7 % (11.7-14.4)
--- NOTE | 2018-06-02 10:26 | Diagnostic Imaging Report ---
EXAMINATION: CHEST SINGLE (PORTABLE) COMPARISON: 06/01/2018 INDICATION: Shortness of breath DISCUSSION: Frontal view of the chest obtained at 0922 hours. HEART AND MEDIASTINUM: Stable cardiomegaly and aortic ectasia. Pacer/defibrillator wires are stable. LINES: Enteric tube extends just past the diaphragm. The sidehole is at the GE junction. A central venous catheter in the right arm terminates over the right axilla. This is stable. LUNGS: Pulmonary vascular markings have diminished in size. Aerated lung demonstrates no pneumonia or pulmonary edema. The interstitium of the left upper lobe is prominent and stable. PLEURA: Left pleural effusion is stable. No pneumothorax. BONES AND SOFT TISSUES: No focal osseous lesion. The soft tissues are normal. IMPRESSION: 1. Improved vascular congestion. 2. Stable left pleural effusion. Underlying pneumonia cannot be excluded. 3. Enteric tube should be advanced 7 to 10 cm to ensure sidehole placement within the stomach. Right PICC line remains in the axilla. 4. Stable cardiomegaly and cardiac devices. Signed by: Dr. Taryn Phoenix MD on 06/02/2018 10:23 AM
[2018-06-02] MEDS: VANCOMYCIN 1GM/NS 250 ML 250 ML IV SCH ×2 (10:30→21:18)
[2018-06-02 10:34] LABS: ANION GAP 17.2 mmol/L (8-16); CREATININE, SERUM 1.26 mg/dL (0.57-1.11); POTASSIUM 4.2 mmol/L (3.5-5.1)
[2018-06-02] MEDS ORDERED: AZTREONAM 1 GM/NS 50 ML 50 ML IV SCH (11:30)
[2018-06-02 12:00] VITALS: BP 118/86
[2018-06-02] MEDS: AZTREONAM 1 GM VIAL IV SCH (12:41)
--- NOTE | 2018-06-02 14:07 | Progress Note ---
DATE: June 02, 2018 CARDIOLOGY PROGRESS NOTE SUBJECTIVE: Patient continues to deteriorate and continues to be more and more tachypneic and tachycardic. Patient is DNR/DNI. REVIEW OF SYSTEMS: Could not be completed as patient is altered. OBJECTIVE VITAL SIGNS: Temperature 98.1, heart rate 120, blood pressure 118/86, satting 84% on nasal cannula 3 liters. GENERAL: Cachectic, ill-appearing woman. CARDIOVASCULAR: Tachycardic, regular S1 and S2. No murmur, rubs or gallops. Palpable carotid pulses. Palpable radial pulses. RESPIRATORY: In moderate respiratory distress. Tachypneic. Bilateral basilar crackles. ABDOMEN: Soft, nontender, nondistended. NEURO AND PSYCH: Patient is somnolent, moaning, not arousable. MEDICATIONS: Reviewed. LABORATORY DATA: Reviewed. IMAGING DATA: Reviewed. TELEMETRY DATA: Shows sinus tachycardia with ventricularly paced rhythm. ASSESSMENT AND PLAN 1. Viral meningitis. 2. Methicillin-resistant Staphylococcus aureus bacteremia. 3. Herpes zoster ophthalmicus. 4. Oxdns-ee-jcrlhiz systolic and diastolic heart failure. 5. Coronary artery disease with known chronic total occlusion of the left anterior descending. 6. Biventricular implantable cardioverter-defibrillator in place. 7. Hypertension. 8. Hyperlipidemia. 9. Hypernatremia. 10. Malnutrition. 11. Altered mental status. RECOMMENDATIONS: Patient is critically ill and continues to deteriorate despite medical therapy. She is DNR/DNI, which is appropriate. From a cardiovascular standpoint, her EF is less than 20% with known CAD underlying. Continue antimicrobials per ID. Recommend gentle diuresis with 20 mg Lasix IV if sodium levels permit. Will continue to follow. However, overall prognosis is very poor. Job#: [id number] EV
[2018-06-02] MEDS ORDERED: HYDROMORPHONE 20MG/ NS 100ML IV PRN (14:45)
--- NOTE | 2018-06-02 15:54 | Diagnostic Imaging Report ---
Abdomen/KUB Tube Placement CPT CODE: 52555 INDICATION: Tube Placement. COMPARISON: Chest x-ray 0922 hours. FINDINGS: Portable, supine image obtained at 1535 hours. Enteric tube is located in the proximal stomach at the fundus. The bowel gas pattern is normal. There is gaseous distention of the colon with a small amount of stool. There are surgical clips in the right upper quadrant suggestive of cholecystectomy. The heart is enlarged. Left pleural effusion is stable. Pacer/defibrillator wires in the mediastinum are stable. There are calcifications throughout the aorta. Bones and soft tissues are unremarkable.. IMPRESSION: Enteric tube terminates at the fundus. Unremarkable bowel gas pattern. Stable left pleural effusion. Signed by: Dr. Taryn Phoenix MD on 06/02/2018 3:50 PM
[2018-06-02 16:00] VITALS: BP 105/67
[2018-06-02] MEDS ORDERED: HYDROMORPHONE 1MG/1ML INJ IV ONE (16:00)
[2018-06-02 20:10] VITALS: BP 126/89
[2018-06-03] MEDS: AZTREONAM 1 GM VIAL IV SCH (01:20)
[2018-06-03 01:24] VITALS: BP 94/69
[2018-06-03] MEDS: LORAZEPAM INJ 2 MG/ML VIAL IV PRN (01:44)
[2018-06-03] MEDS: LEVALBUTEROL HCL SOLN NEBU 0.63 MG/3 ML NEB INH SCH ×2 (01:55→06:40)
[2018-06-03] MEDS: IPRATROPIUM BROMIDE 0.02% 2.5 ML NEB NEB SCH ×2 (01:55→06:40)
[2018-06-03] MEDS: DEXTROSE 5% 1,000 ML IV SCH (04:41)
[2018-06-03 05:10] LABS: BASOPHILS # (AUTO) 0.1 (0.0-0.1); BASOPHILS % 0.3 % (0.0-1.0); HEMATOCRIT 38.1 % (34.2-44.1); HEMOGLOBIN 11.1 g/dL (12.0-16.0); LYMPHOCYTES # (AUTO) 0.1 (1.0-3.2); LYMPHOCYTES % 0.6 % (18.0-39.1); MEAN CORPUSCULAR HEMOGLOBIN 28.1 pg (28-32); MEAN CORPUSCULAR HGB CONC 29.1 g/dL (31-35); MEAN CORPUSCULAR VOLUME 96.5 fL (81-99); MONOCYTES # (AUTO) 1.1 (0.2-0.8); MONOCYTES % 5.5 % (4.4-11.3); NEUTROPHILS # (AUTO) 17.9 (2.1-6.9); NEUTROPHILS % 91.8 % (38.7-80.0); PLATELET COUNT 193 x10e3/uL (140-360); RED BLOOD COUNT 3.95 x10e6/uL (3.6-5.1); RED CELL DISTRIBUTION WIDTH 17.7 % (11.7-14.4)
[2018-06-03 05:28] VITALS: BP 94/66
[2018-06-03 05:31] LABS: ANION GAP 17.1 mmol/L (8-16); CALCIUM 8.8 mg/dL (8.4-10.2); CREATININE, SERUM 1.89 mg/dL (0.57-1.11)
[2018-06-03 05:33] LABS: POTASSIUM 6.1 mmol/L (3.5-5.1)
[2018-06-03] MEDS: DEXAMETHASONE SOD PHOS INJ 4 MG/ML VIAL IV SCH ×2 (06:43)
[2018-06-03 07:53] LABS: LYMPHOCYTES % (MANUAL) 4 % (19-48); MONOCYTES % (MANUAL) 3 % (3.4-9.0); NEUTROPHILS % (MANUAL) 93 % (40-74); NUCLEATED RED BLOOD CELLS 14
[2018-06-03 07:54] LABS: RBC MORPHOLOGY COMMENT ABNORMAL
[2018-06-03 07:55] LABS: PLATELET ESTIMATE ADEQUATE; PLATELET MORPHOLOGY COMMENT NORMAL; POLYCHROMASIA FEW
[2018-06-03 08:00] VITALS: BP 83/53
[2018-06-03] MEDS: EYE LUBRICANT OPTH OINT 3.5GM TUBE OP SCH (08:14)
[2018-06-03] MEDS: VANCOMYCIN 1GM/NS 250 ML 250 ML IV SCH (08:14)
[2018-06-03] MEDS: ASPIRIN 300 MG SUPP PR SCH (08:16)
[2018-06-03 08:21] LABS: BASOPHILS % 0.2 % (0.0-1.0); HEMATOCRIT 38.1 % (34.2-44.1); HEMOGLOBIN 11.1 g/dL (12.0-16.0); LYMPHOCYTES # (AUTO) 0.3 (1.0-3.2); LYMPHOCYTES % 1.3 % (18.0-39.1); MEAN CORPUSCULAR HEMOGLOBIN 28.5 pg (28-32); MEAN CORPUSCULAR HGB CONC 29.1 g/dL (31-35); MEAN CORPUSCULAR VOLUME 97.7 fL (81-99); MONOCYTES # (AUTO) 1.1 (0.2-0.8); MONOCYTES % 5.5 % (4.4-11.3); NEUTROPHILS # (AUTO) 18.5 (2.1-6.9); PLATELET COUNT 177 x10e3/uL (140-360); RED CELL DISTRIBUTION WIDTH 17.8 % (11.7-14.4)
[2018-06-03 08:35] LABS: ALBUMIN 2.7 g/dL (3.5-5.0); ALBUMIN/GLOBULIN RATIO 0.8 (0.8-2.0); ANION GAP 16.2 mmol/L (8-16); CALCIUM 8.5 mg/dL (8.4-10.2); CREATININE, SERUM 2.18 mg/dL (0.57-1.11)
[2018-06-03 08:54] LABS: POTASSIUM 6.2 mmol/L (3.5-5.1)
[2018-06-03 11:30] VITALS: BP 50/33
--- NOTE | 2018-06-03 11:38 | Progress Note ---
DATE: June 03, 2018 CARDIOLOGY PROGRESS NOTE SUBJECTIVE: Continues to deteriorate, more and more altered. REVIEW OF SYSTEMS: Could not be completed due to altered mental status. PHYSICAL EXAMINATION: VITAL SIGNS: Heart rate 119, respiratory rate 35, blood pressure 85/53, satting 95% on 3 liters nasal cannula. GENERAL: Cachectic, ill-appearing white female. CARDIOVASCULAR: Tachycardic, regular. No murmurs, rubs, or gallops. Carotid pulses palpable. Radial pulses palpable. ABDOMEN: Soft, nontender, nondistended. LUNGS: Bibasilar crackles and coarse breath sounds. NEURO AND PSYCH: Patient is very somnolent. MEDICATIONS: Reviewed. LABORATORY DATA: Reviewed. Worsening white count up to 20 today. Sodium 160, potassium 6.2, creatinine 2.1. TELEMETRY: With sinus tach and V pacing. ASSESSMENT: 1. Viral meningitis. 2. Methicillin-resistant Staphylococcus aureus bacteremia. 3. Hbvto-zv-xjnywry systolic and diastolic heart failure. 4. Herpes zoster ophthalmicus. 5. 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 6. Paroxysmal atrial fibrillation, status post biventricular implantable cardioverter-defibrillator placement and atrioventricular node ablation. 7. Hypertension. 8. Hyperlipidemia. 9. Hypernatremia. 10. Hyperkalemia. 11. Hypotension. 12. Malnutrition. 13. Altered mental status. RECOMMENDATIONS: Patient at this point is essentially comfort care. Continues to deteriorate. Will call the device company to come and turn off the shocking function of her ICD as patient likely may pass away in the next several days. Continue supportive care per primary team. Thank you for this consult. Will continue to follow. Job#: [id number]
== END 2018-06-03 15:37 | disposition expired | DRG 871 ==
LOC: ER 15:04 → ERHOLD 18:52 → ICU 20:56 → MED/SURG3 05-30 16:03 → IMCU 05-31 18:54
PROVIDERS: ADMIT Internal Medicine; ATTEND Internal Medicine
PROC: 02HV33Z Insertion of Infusion Device into Superior Vena Cava, Percutaneous Approach (ICD-10-PCS; 2018-05-30)
PROC: 009U3ZX Drainage of Spinal Canal, Percutaneous Approach, Diagnostic (ICD-10-PCS; principal; 2018-05-31)
PROC: B01B1ZZ Fluoroscopy of Spinal Cord using Low Osmolar Contrast (ICD-10-PCS; 2018-05-31)
DX: A41.02 Sepsis due to Methicillin resistant Staphylococcus aureus (principal); B02.1 Zoster meningitis; J96.00 Acute respiratory failure, unspecified whether with hypoxia or hypercapnia; I50.23 Acute on chronic systolic (congestive) heart failure; B02.30 Zoster ocular disease, unspecified; B02.0 Zoster encephalitis; E87.4 Mixed disorder of acid-base balance; R64 Cachexia; E46 Unspecified protein-calorie malnutrition; E22.2 Syndrome of inappropriate secretion of antidiuretic hormone; I24.8 Other forms of acute ischemic heart disease; Z66 Do not resuscitate; Z51.5 Encounter for palliative care; Z95.810 Presence of automatic (implantable) cardiac defibrillator; E78.5 Hyperlipidemia, unspecified; I25.10 Atherosclerotic heart disease of native coronary artery without angina pectoris; J44.9 Chronic obstructive pulmonary disease, unspecified; E86.0 Dehydration; Z88.0 Allergy status to penicillin; D63.8 Anemia in other chronic diseases classified elsewhere; L30.9 Dermatitis, unspecified; E87.6 Hypokalemia; M81.0 Age-related osteoporosis without current pathological fracture; I25.82 Chronic total occlusion of coronary artery; E87.5 Hyperkalemia; I48.0 Paroxysmal atrial fibrillation; Z79.01 Long term (current) use of anticoagulants; Z68.20 Body mass index [BMI] 20.0-20.9, adult; F17.210 Nicotine dependence, cigarettes, uncomplicated; M80.08XS Age-related osteoporosis with current pathological fracture, vertebra(e), sequela
CPT/HCPCS: 31720; 36415; 36600; 62270; 70450; 71045; 72126; 72132; 74018; 74177; 74230; 77002; 80048; 80053; 80202; 81001; 82550; 82553; 82607; 82805; 82945; 82947; 83605; 83690; 83735; 83880; 83935; 84157; 84166; 84295; 84443; 84484; 84520; 85025; 85610; 85730; 86592; 87040; 87070; 87071; 87086; 87186; 87205; 87529; 89051; 93005; 93306; 94640; 96367; 97139; 99285; J0696; J1100; J1170; J1630; J1885; J1940; J2001; J2060; J2185; J2405; J3370; J7030; J7040; J7050; J7070; Q9967